=== PATIENT | female | born 1935 | race Caucasian/White ===

== ENCOUNTER → 2019-07-21 12:16 | Outpatient (BNVA) | payer MEDICARE, BC, SELFPAY | PROVIDERS: Family Provider Family Medicine; PCP Family Medicine; Visit Provider Family Medicine | DX: Z00.00 Encounter for general adult medical examination without abnormal findings (principal); M19.90 Unspecified osteoarthritis, unspecified site; Z91.81 History of falling; Z13.31 Encounter for screening for depression | CPT/HCPCS: 80053; 80061; 84443; 85025 ==

== ENCOUNTER → 2021-02-20 10:15 | Outpatient (BNVA) | payer MEDICARE, MEDICAID, SELFPAY | PROVIDERS: PCP Family Medicine; Visit Provider Family Medicine | DX: Z00.00 Encounter for general adult medical examination without abnormal findings (principal); M50.320 Other cervical disc degeneration, mid-cervical region, unspecified level; L57.0 Actinic keratosis; M19.90 Unspecified osteoarthritis, unspecified site; Z79.899 Other long term (current) drug therapy; Z12.31 Encounter for screening mammogram for malignant neoplasm of breast; Z87.81 Personal history of (healed) traumatic fracture | CPT/HCPCS: 80053; 80061; 84443 ==

== ENCOUNTER → 2021-03-02 11:35 | Outpatient (BNVA) | payer MEDICARE, MEDICAID, SELFPAY | PROVIDERS: PCP Family Medicine; Visit Provider Family Medicine | DX: R79.89 Other specified abnormal findings of blood chemistry (principal); R53.83 Other fatigue | CPT/HCPCS: 82607; 84439; 84443; 84481 ==

== ENCOUNTER 2021-04-05 13:17 | Outpatient (CLI) | payer MEDICARE, MEDICAID, SELFPAY ==
--- NOTE | 2021-04-05 13:55 | XR_ITS ---
WS: [id number] DEXA (DUAL ENERGY X-RAY ABSORPTIOMETRY) Bone mineral density was performed using a Edaixi machine. HISTORY: Compression fracture of spine COMPARISON: None available. Total hip BMD: Left: 0.704 g/cm2. T score: -2.4 Z score: 0.0 Right: 0.641 g/cm2. T score: -2.9 Z score: -0.5 10 year probability of a major osteoporotic fracture is 35%. XR/XR DEXA axial skeleton* [id number] IMPRESSION: OSTEOPOROSIS based upon the WHO classification for females.
--- NOTE | 2021-04-05 14:00 | MM_ITS ---
WS: [id number] Exam: [id number] Date/Time of Exam: 04/05/2021 2:10 PM Reason For Exam: Screening VIEWS: MLO and CC views both breasts. Comparison made with prior exam of 05/04/2019, 09/21/2015.. Findings: There was no sign of mass, architectural distortion or suspicious calcification in either breast. Sc attered fibroglandular densities MM/[id number] Impression: BI-RADS: 2-Benign FOLLOW-UP: 1 Year Follow-up This mammogram was also analyzed by the Computer Aided Detection System R2 Imag e Shake Loader.
== END 2021-04-05 13:18 | disposition home or self-care (01) ==
LOC: RADSHAW 13:21
PROVIDERS: PCP Family Medicine; Visit Provider Family Medicine
DX: Z12.31 Encounter for screening mammogram for malignant neoplasm of breast (principal); Z87.81 Personal history of (healed) traumatic fracture; M81.0 Age-related osteoporosis without current pathological fracture
CPT/HCPCS: 77067; 77080

== ENCOUNTER → 2021-06-12 12:23 | Outpatient (BNVA) | payer MEDICARE, MEDICAID, SELFPAY | PROVIDERS: PCP Family Medicine; Visit Provider Family Medicine | DX: M79.641 Pain in right hand (principal) | CPT/HCPCS: 84550; 85025 ==

== ENCOUNTER → 2022-05-30 11:51 | Outpatient (BNVA) | payer MEDICARE, MEDICAID, SELFPAY | PROVIDERS: PCP Family Medicine; Visit Provider Nurse Practitioner Family | DX: R68.89 Other general symptoms and signs (principal) | CPT/HCPCS: 87400 ==

== ENCOUNTER → 2022-07-22 10:49 | Outpatient (BNVA) | payer MEDICARE, MEDICAID, SELFPAY | PROVIDERS: PCP Family Medicine; Visit Provider Family Medicine | DX: M81.0 Age-related osteoporosis without current pathological fracture (principal); Z13.6 Encounter for screening for cardiovascular disorders; G57.93 Unspecified mononeuropathy of bilateral lower limbs | CPT/HCPCS: 80053; 80061; 84443; 85025 ==

== ENCOUNTER 2022-08-07 23:02 | Emergency (ER) | payer MEDICARE, MEDICAID, SELFPAY ==
[2022-08-07 23:03] VITALS: BMI 22.8
[2022-08-07 23:05] VITALS: BP 185/105; PULSE 86; RESP 15; TEMP 36.6; O2SAT 92
--- NOTE | 2022-08-07 23:09 | CTR_ITS ---
PROCEDURE INFORMATION: Exam: CT Cervical Spine Without Contrast Exam date and time: 08/08/2022 12:06 AM Age: 86 years old Clinical indication: Injury or trauma; Fall; Blunt trauma; Patient HX: Fell at home onto concrete floor. Hematoma to RT temporal with contusion to RT orbit. C/O head, neck, and severe RT pelvic pain. TECHNIQUE: Imaging protocol: Computed tomography of the cervical spine without contrast. Radiation optimization: All CT scans at this facility use at least one of these dose optimization techniques: automated exposure control; mA and/or kV adjustment per patient size (includes targeted exams where dose is matched to clinical indication); or iterative reconstruction. REPORTING DATA: Count of CT and Cardiac NM exams in prior 12 months: This patient has received 2 known CTs and 0 known cardiac nuclear medicine studies in the 12 months prior to the current study. COMPARISON: CT head wo con* [id number] 08/08/2022 12:01 AM RADIATION DOSE METRICS: Total DLP (mGy-cm): 271.37 FINDINGS: Bones/joints: Diffuse bony demineralization. Near anatomic alignment. No acute fracture. Multilevel degenerative changes are present. No severe spinal canal stenosis. Partially imaged right maxillary and zygomatic fractures as described on comparison CT head. Lungs: Lung apices are normal. Soft tissues: Unremarkable. CT/CT cervical spin wo con* [id number] IMPRESSION: No acute cervical spinal fracture.
--- NOTE | 2022-08-07 23:09 | CTR_ITS ---
PROCEDURE INFORMATION: Exam: CT Head Without Contrast Exam date and time: 08/08/2022 12:01 AM Age: 86 years old Clinical indication: Injury or trauma; Fall; Blunt trauma (contusions or hematomas); Patient HX: Fell at home onto concrete floor. Hematoma to RT temporal with contusion to RT orbit. C/O head, neck, and severe RT pelvic pain. TECHNIQUE: Imaging protocol: Computed tomography of the head without contrast. Radiation optimization: All CT scans at this facility use at least one of these dose optimization techniques: automated exposure control; mA and/or kV adjustment per patient size (includes targeted exams where dose is matched to clinical indication); or iterative reconstruction. REPORTING DATA: Count of CT and Cardiac NM exams in prior 12 months: This patient has received 2 known CTs and 0 known cardiac nuclear medicine studies in the 12 months prior to the current study. COMPARISON: No relevant prior studies available. RADIATION DOSE METRICS: Total DLP (mGy-cm): 1302.58 FINDINGS: Brain: Right-sided temporoparietal subarachnoid hemorrhage is seen on series 4, image 28. No other hemorrhage. No midline shift or mass effect. No acute infarct. Cerebral ventricles: No ventriculomegaly. Paranasal sinuses: High density material seen in the right maxillary sinus which is likely blood. There is a fracture of the right anterior and posterior maxillary sinus ron. Right pre maxillary soft tissue swelling is present. Mastoid air cells: Visualized mastoid air cells are well aerated. Bones/joints: Comminuted fracture of the greater wing of the sphenoid bone. Nondisplaced fracture of the posterior right zygomatic arch. Soft tissues: Right frontal moderate-sized scalp hematoma. CT/CT head wo con* [id number] IMPRESSION: 1. Right-sided temporoparietal subarachnoid hemorrhage. 2. Right-sided zygomaxillary complex fracture as described. Recommend dedicated facial bone CT for further assessment. 3. Right frontal scalp hematoma. THIS REPORT CONTAINS FINDINGS THAT MAY BE CRITICAL TO PATIENT CARE. The findings were verbally communicated via telephone conference with STONEY Landry at 12:38 AM EVP OF PRODUCTS & CO FOUNDER on 08/08/2022. The findings were acknowledged and understood.
--- NOTE | 2022-08-07 23:09 | ECG_ITS ---
[facility] Test Date: 2022-08-07 Pat Name: Berenice Gilbert Department: Room: Gender: Female Fitter'S Assistant: : 1935 Requested By: Shadi Matthews Order Number: [id number] Camron MD: Ankush Morrow M.D. Measurements Intervals [place] Rate: 77 P: 68 GA: 131 QRS: 24 QRSD: 114 T: 53 QT: 399 QTc: 454 Interpretive Statements SINUS RHYTHM INCOMPLETE RIGHT BUNDLE BRANCH BLOCK [90+ ms QRS DURATION, TERMINAL R IN V1/V2, 40+ ms S IN I/aVL/V4/V5/V6] PROBABLE LATERAL MYOCARDIAL INFARCTION , OF INDETERMINATE AGE [35 ms Q WAVE IN I/aVL/V5/V6] POSSIBLE INFERIOR MYOCARDIAL INFARCTION , PROBABLY OLD [30 ms Q WAVE IN II/aVF] No previous ECG available for comparison Electronically Signed On 08-08-2022 22:19:01 FIRE ALARM OPERATOR by Ankush Morrow M.D. [id number]
--- NOTE | 2022-08-07 23:09 | XRR_ITS ---
PROCEDURE INFORMATION: Exam: XR Right Hip Exam date and time: 08/07/2022 11:18 PM Age: 86 years old Clinical indication: Injury or trauma; Fall; Blunt trauma (contusions or hematomas); Right; Pelvic region; Patient HX: Fell at home onto concrete floor. Hematoma to RT temporal with contusion to RT orbit. C/O head, neck, and severe RT pelvic pain. TECHNIQUE: Imaging protocol: Radiologic exam of the right hip. Views: 1 view hip with pelvis when performed. COMPARISON: MR lumbar spine wo con* [id number] 12/24/2017 12:59 PM FINDINGS: Bones/joints: Better seen on same-day CT pelvis are fractures involving the right superior and inferior pubic rami with extension to the pubic symphysis. Soft tissues: Unremarkable. XR/XR hip RT 2-3V wo/w pel* [id number] IMPRESSION: Better seen on same-day CT pelvis are fractures involving the right superior and inferior pubic rami with extension to the pubic symphysis.
--- NOTE | 2022-08-07 23:09 | XRR_ITS ---
PROCEDURE INFORMATION: Exam: XR Chest Exam date and time: 08/07/2022 11:16 PM Age: 86 years old Clinical indication: Injury or trauma; Fall; Blunt trauma (contusions or hematomas); Patient HX: Fell at home onto concrete floor. Hematoma to RT temporal with contusion to RT orbit. C/O head, neck, and severe RT pelvic pain. TECHNIQUE: Imaging protocol: Radiologic exam of the chest. Views: 1 view. COMPARISON: No relevant prior studies available. FINDINGS: Lungs: Unremarkable. No consolidation. Pleural spaces: Unremarkable. No pleural effusion. No pneumothorax. Heart/Mediastinum: Large hiatal hernia. Bones/joints: Unremarkable. XR/XR chest 1V portable [id number] IMPRESSION: 1. Negative for traumatic injury to the chest. 2. Large hiatal hernia.
--- NOTE | 2022-08-07 23:09 | XRR_ITS ---
PROCEDURE INFORMATION: Exam: XR Pelvis Exam date and time: 08/07/2022 11:18 PM Age: 86 years old Clinical indication: Injury or trauma; Fall; Blunt trauma (contusions or hematomas); Right; Pelvic region; Prior surgery; Surgery type: Hysterectomy; Patient HX: Fell at home onto concrete floor. Hematoma to RT temporal with contusion to RT orbit. C/O head, neck, and severe RT pelvic pain. TECHNIQUE: Imaging protocol: Radiologic exam of the pelvis. Views: 1 or 2 view. COMPARISON: MR lumbar spine wo con* [id number] 12/24/2017 12:59 PM FINDINGS: Bones/joints: Better seen on same-day CT pelvis are fractures involving the right superior and inferior pubic rami with extension to the pubic symphysis. Soft tissues: Unremarkable. XR/XR pelvis 1-2V* [id number] IMPRESSION: Better seen on same-day CT pelvis are fractures involving the right superior and inferior pubic rami with extension to the pubic symphysis.
--- NOTE | 2022-08-07 23:20 | W.ED.TRAUMA ---
HPI - Trauma General: Chief Complaint: Trauma Stated Complaint: FALL Time Seen by Provider: 08/07/22 23:04 Source: patient and EMS Mode of arrival: EMS Limitations: no limitations History of Present Illness: 86-year-old female states that she was in her garage after mu-ism and fell she is unsure if she passed out or tripped and fell she does not really remember she did hit her head she has a hematoma and laceration to the right side of her head she also has some right hip pain. She able to move her lower extremities. She does have a headache she rates 5 out of 10 denies any chest or abdominal pain. Vitals are normal Associated symptoms: Reports headache(s); Denies abdominal pain, chest pain, chills, dental pain, fever(s), nausea or vomiting Review of Systems Const: Denies: fever(s), chills, body aches or change in appetite Eyes: Denies: blurry vision or eye discomfort ENMT: Denies: throat pain or dental pain Card: Denies: chest pain Resp: Denies: dyspnea GI: Denies: abdominal pain, nausea, vomiting or diarrhea : Denies: dysuria Musc: Reports: extremity pain Skin/Breast: Denies: rash Neuro: Reports: headache(s) Psych: Denies: depression Morgan/Lymph: Denies: easy bruising All/Imm: Denies: urticaria PFSH ED PFSH: Medical History (Updated 08/08/22 @ 00:43 by Stoney Matthews MD) Cataracts, bilateral DDD (degenerative disc disease) Kyphosis Macular degeneration Murmur Osteoarthritis Surgical History History of hysterectomy Social History Smoking and tobacco status: never smoked Alcohol intake: never Marital status: Physical Exam Const: COMMON NORMALS: patient oriented x3 HENMT: COMMON NORMALS: normocephalic; head/scalp not atraumatic (1.5 cm laceration and hematoma to right forehead) HEAD & SCALP: normocephalic; not atraumatic (1.5 cm laceration and hematoma to right forehead) Eye: COMMON NORMALS: Equal, round and reactive pupils present and EOMs intact bilaterally PUPIL: Yes Equal, round and reactive pupils present Neck/C-Spine: COMMON NORMALS: full ROM and supple Chest: COMMONS NORMALS: normal inspection of the chest and normal palpation of entire chest wall Resp: COMMON NORMALS: normal respiratory effort, No retractions, No use of accessory muscles and clear to auscultation bilaterally AUSCULTATION: clear to auscultation bilaterally Cardio: COMMON NORMALS: regular rate, regular rhythm and No murmurs present (Cardio) RATE: regular rate RHYTHM: regular rhythm GI: COMMON NORMALS: Normal to inspection, nondistended, normoactive bowel sounds present, Soft to palpation, non-tender and no masses PALPATION: Yes Soft to palpation Extremity: COMMON NORMALS: normal to inspection and full ROM Neuro: COMMON NORMALS: patient oriented x3, moves all extremities and no focal motor deficits Psych: COMMON NORMALS: mental status grossly normal, Normal thought process present and cooperative THOUGHT PROCESS: Normal thought process present Skin: COMMON NORMALS: no rashes or lesions noted and no wounds GENERAL SKIN EXAM: no rashes or lesions noted Procedures Laceration Laceration 1: Site: face Side (If applicable): right Size (cm): 1 Description: linear Pre-repair: wound explored and irrigated extensively Skin layer closed with: other (dermabond) Course Vital Signs: Vital signs: Vital Signs Temperature 97.8 F 08/07/22 23:05 Pulse Rate 86 08/07/22 23:05 Respiratory Rate 15 08/07/22 23:05 Blood Pressure 185/105 08/07/22 23:05 Pulse Oximetry 92 08/07/22 23:05 Oxygen Delivery Me thod 08/07/22 23:05 MDM - Trauma Medical Decision Making Patient presents after a fall with a head injury she does have a subarachnoid hemorrhage along with a rami fracture to her pubis. She is awake and alert GCS of 15 she has been stable here did speak to [facility] and will transfer there for higher level of care with neurosurgery Lab Data 08/07/22 23:27 08/07/22 23:27 Radiology Impressions Cervical Spine CT 08/07/22 23:09 IMPRESSION: No acute cervical spinal fracture. Head CT 08/07/22 23:09 IMPRESSION: 1. Right-sided temporoparietal subarachnoid hemorrhage. 2. Right-sided zygomaxillary complex fracture as described. Recommend dedicated facial bone CT for further assessment. 3. Right frontal scalp hematoma. THIS REPORT CONTAINS FINDINGS THAT MAY BE CRITICAL TO PATIENT CARE. The findings were verbally communicated via telephone conference with STONEY Landry at 12:38 AM BIOINFORMATICS DEVELOPER on 08/08/2022. The findings were acknowledged and understood. Laboratory Results WBC 5.7 10^3/uL (4.0-10.0) 08/07/22 RBC 4.62 10^6/uL (4.1-5.3) 08/07/22 Hgb 14.3 g/dL (11.5-15.3) 08/07/22 Hct 45.1 % (37.0-47.0) 08/07/22 MCV 97.6 fl (81-99) 08/07/22 MCH 31.0 pg (28.0-34.0) 08/07/22 MCHC 31.7 g/dL (30.0-36.0) 08/07/22 RDW 12.3 % (12.1-15.1) 08/07/22 Plt Count 183 10^3/cmm (130-400) 08/07/22 MPV 9.8 fL (7.4-10.4) 08/07/22 Neut % (Auto) 62.5 % 08/07/22 Lymph % (Auto) 26.3 % 08/07/22 Pine % (Auto) 7.5 % 08/07/22 Eos % (Auto) 2.5 % 08/07/22 Baso % (Auto) 0.5 % 08/07/22 Neut # (Auto) 3.56 10^3/uL (1.8-7.7) 08/07/22 Lymph # (Auto) 1.5 10^3/uL (0.8-4.8) 08/07/22 Pine # (Auto) 0.4 10^3/uL (0.2-0.9) 08/07/22 Eos # (Auto) 0.1 10^3/uL (0.0-0.8) 02/22/23 23:27 Baso # (Auto) 0.0 10^3/uL (0.0-0.1) 08/07/22 23:27 Nucleated RBC % (auto) 0 % 08/07/22 23:27 Nucleated RBCs # 0.0 /100WBC 08/07/22 23:27 Sodium 136 mmol/L (136-145) 08/07/22 23:27 Potassium 4.0 mmol/L (3.5-5.1) 08/07/22 23:27 Chloride 95 mmol/L (98-107) L 08/07/22 23:27 Carbon Dioxide 29 mmol/L (22-29) 08/07/22 23:27 Anion Gap 16.0 (5-19) 08/07/22 23:27 BUN 12 mg/dL (8-23) 08/07/22 23:27 Creatinine 0.7 mg/dL (0.5-0.9) 08/07/22 23:27 GFR Calculation Not Reportable 08/07/22 23:27 Glucose 117 mg/dL (65-115) H 08/07/22 23:27 Calculated Osmolality 283 mOsm/kg (285-295) L 08/07/22 23:27 Calcium 9.3 mg/dL (8.5-10.5) 08/07/22 23:27 EKG Data EKG 1: I personally reviewed and interpreted this EKG as follows: EKG interpretation date: 08/07/22 EKG interpretation time: 23:39 Interpretation: nsr hr [address] or t wave abnormalities qrs 114 qtc 431 Discharge Plan Discharge Patient Disposition: Xfer Short-Term Hosp Clinical Impression: Subarachnoid hemorrhage, Fall, Closed fracture of pubic ramus Condition: Stable Referrals: Tessa Shafer MD [Primary Care Provider] - Coding Level of Care Code ED Finish Grinder for Chg Fwmayo
[2022-08-07 23:32] LABS: Basophils % 0.5 %; Eosinophils # 0.1 10^3/uL (0.0-0.8); Eosinophils % 2.5 %; Hematocrit 45.1 % (37.0-47.0); Hemoglobin 14.3 g/dL (11.5-15.3); Lymphocytes # 1.5 10^3/uL (0.8-4.8); Lymphocytes % 26.3 %; Mean Corpuscular HGB Conc 31.7 g/dL (30.0-36.0); Mean Corpuscular Volume 97.6 fl (81-99); Mean Platelet Volume 9.8 fL (7.4-10.4); Monocytes # 0.4 10^3/uL (0.2-0.9); Monocytes % 7.5 %; Neutrophils # 3.56 10^3/uL (1.8-7.7); Neutrophils % 62.5 %; Nucleated Red Blood Cells % 0 %; Platelet Count 183 10^3/cmm (130-400); Red Blood Count 4.62 10^6/uL (4.1-5.3); Red Cell Distribution Width 12.3 % (12.1-15.1); White Blood Count 5.7 10^3/uL (4.0-10.0)
[2022-08-07 23:49] LABS: Blood Urea Nitrogen 12 mg/dL (8-23); Calcium 9.3 mg/dL (8.5-10.5); Carbon Dioxide 29 mmol/L (22-29); Chloride 95 mmol/L (98-107); Creatinine Clr Calc Pharmacy 43.5834; Glucose 117 mg/dL (65-115); Osmolality Calculated 283 mOsm/kg (285-295); Sodium 136 mmol/L (136-145)
--- NOTE | 2022-08-08 00:02 | CTR_ITS ---
PROCEDURE INFORMATION: Exam: CT Pelvis Without Contrast; Skeletal Exam date and time: 08/08/2022 12:09 AM Age: 86 years old Clinical indication: Injury or trauma; Fall; Blunt trauma (contusions or hematomas); Right; Pelvic region; Prior surgery; Surgery type: Hysterectomy; Patient HX: Fell at home onto concrete floor. Hematoma to RT temporal with contusion to RT orbit. C/O head, neck, and severe RT pelvic pain. TECHNIQUE: Imaging protocol: Computed tomography of the pelvis without contrast. Exam focused on the skeleton. Radiation optimization: All CT scans at this facility use at least one of these dose optimization techniques: automated exposure control; mA and/or kV adjustment per patient size (includes targeted exams where dose is matched to clinical indication); or iterative reconstruction. REPORTING DATA: Count of CT and Cardiac NM exams in prior 12 months: This patient has received 2 known CTs and 0 known cardiac nuclear medicine studies in the 12 months prior to the current study. COMPARISON: CR (PELVIS, ) 08/07/2022 11:18 PM RADIATION DOSE METRICS: Total DLP (mGy-cm): 320.1 FINDINGS: Stomach and bowel: Constipation. Diverticulosis without diverticulitis. Bones/joints: Right superior and inferior pubic rami fractures with involvement of the pubic symphysis. L4 vertebroplasty changes. Soft tissues: Unremarkable. CT/CT pelvis con [id number] IMPRESSION: 1. Right superior and inferior pubic rami fractures with involvement of the pubic symphysis. 2. L4 vertebroplasty changes. 3. Constipation. 4. Diverticulosis without diverticulitis.
[2022-08-08] MEDS: ondansetron 2 mg/ML SDV 2 mL 4 MG IVP (00:29)
[2022-08-08] MEDS: morphine 4 mg/mL SDV 1 mL IVP (00:29)
[2022-08-08] MEDS: acetaminophen 325 mg Tablet 650 MG PO (00:29)
[2022-08-08 01:05] VITALS: BP 144/71; PULSE 77; RESP 19; O2SAT 93
[2022-08-08 01:12] LABS: INR 0.96 (0.8-1.2)
[2022-08-08 01:17] VITALS: BP 134/70; PULSE 78; RESP 18; O2SAT 93
== END 2022-08-08 01:18 | disposition short-term general hospital (02) ==
PROVIDERS: Emergency Provider Emergency Medicine; PCP Family Medicine
DX: S06.6XAA Traumatic subarachnoid hemorrhage with loss of consciousness status unknown, initial encounter (principal); S32.501A Unspecified fracture of right pubis, initial encounter for closed fracture; S02.40EA Zygomatic fracture, right side, initial encounter for closed fracture; S01.81XA Laceration without foreign body of other part of head, initial encounter; H35.30 Unspecified macular degeneration; W19.XXXA Unspecified fall, initial encounter
CPT/HCPCS: 12011; 70450; 71045; 72125; 72170; 72192; 73502; 80048; 85025; 85610; 93005; 96374; 96375; 99285; J2270; J2405

== ENCOUNTER 2022-11-27 19:45 | Inpatient (IN) | payer MEDICARE, MEDICAID, SELFPAY ==
[2022-11-27 20:01] VITALS: BP 145/87; PULSE 72; RESP 18; TEMP 36.9; O2SAT 89; BMI 22.8
--- NOTE | 2022-11-27 20:06 | XRR_ITS ---
PROCEDURE INFORMATION: Exam: XR Left Hip Exam date and time: 11/27/2022 8:10 PM Age: 87 years old Clinical indication: Hip pain; Left hip; Additional info: Fall pain TECHNIQUE: Imaging protocol: Radiologic exam of the left hip. Views: 2 or 3 views hip with pelvis when performed. COMPARISON: CT pelvis wo con [id number] 08/08/2022 12:09 AM FINDINGS: Bones/joints: Left hip subcapital hip fracture with displacement and impaction of the fracture fragments. Right pubic symphysis along with superior and inferior pubic rami chronic fractures. Lumbar spine vertebroplasty changes. Soft tissues: Unremarkable. XR/XR hip LT 2-3V wo/w pel* [id number] IMPRESSION: 1. Left hip subcapital hip fracture with displacement and impaction of the fracture fragments. 2. Right pubic symphysis along with superior and inferior pubic rami chronic fractures. 3. Lumbar spine vertebroplasty changes.
--- NOTE | 2022-11-27 20:07 | ED_ITS ---
HPI - Fall General: Chief Complaint: Fall Stated Complaint: FALL Time Seen by Provider: 11/27/22 20:01 History of Present Illness: Patient presents to the ER by EMS with complaints of fall around 630 and landing on her left hip. Per EMS there was shortening and deformity patient was given 10 mg morphine and 4 mg Zofran on route pain is moderately well controlled at the time. complaint: fall Onset (ago): hour(s) (1.5 hours ago) Fall from: standing Loss of consciousness: None Context: tripped/slipped Location of injury: other (Left hip) Severity: moderate Quality: aching Review of Systems General: Reports: 10 or more systems reviewed and unremarkable except in HPI and below PFSH ED PFSH: Medical History (Updated 11/27/22 @ 20:39 by Marcos Valentine DO) Cataracts, bilateral DDD (degenerative disc disease) Kyphosis Macular degeneration Murmur Osteoarthritis Surgical History History of hysterectomy Social History Smoking and tobacco status: never smoked Alcohol intake: never Substance/Drug Use: never Marital status: Physical Exam Const: COMMON NORMALS: no acute distress, average body habitus, patient oriented x3, no limitations, healthy appearing, alert and well nourished HENMT: COMMON NORMALS: normocephalic, atraumatic, hearing grossly normal bilaterally, external ears normal, Normal external nose present and moist oral mucous membranes HEAD & SCALP: normocephalic and atraumatic NOSE: Normal external nose present EXTERNAL EAR: Yes external ears normal Neck/C-Spine: COMMON NORMALS: full ROM, no lymphadenopathy, supple, no meningeal signs, no JVD and Thyroid normal THYROID: Thyroid normal Chest: COMMONS NORMALS: normal inspection of the chest and normal palpation of entire chest wall Resp: COMMON NORMALS: normal respiratory effort, No retractions, No use of accessory muscles and clear to auscultation bilaterally AUSCULTATION: clear to auscultation bilaterally Cardio: COMMON NORMALS: no JVD, regular rate, regular rhythm, S1 normal heart sound present, S2 normal heart sound present, No gallops present (Cardio), No clicks present (Cardio), No murmurs present (Cardio) and No rub (Cardio) RATE: regular rate RHYTHM: regular rhythm HEART SOUNDS: S1 normal heart sound present and S2 normal heart sound present GI: COMMON NORMALS: Normal to inspection, nondistended, normoactive bowel sounds present, Soft to palpation, non-tender, No hepatosplenomegaly present and no masses PALPATION: Yes Soft to palpation and Yes No hepatosplenomegaly present : COMMON NORMALS: Yes no CVA tenderness BLADDER/KIDNEY EXAM: Yes no CVA tenderness Back/Pelvis: COMMON NORMALS: no CVA tenderness Extremity: NARRATIVE EXTREMITY EXAM: Pain with palpation over left hip region probable deformity. Neuro: COMMON NORMALS: patient oriented x3 SENSORIUM/ORIENTATION: Yes alert MENINGEAL SIGNS: Yes no meningeal signs Course Vital Signs: Vital signs: Vital Signs Temperature 98.5 F 11/27/22 20:01 Pulse Rate 72 11/27/22 20:01 Respiratory Rate 16 11/27/22 20:37 Blood Pressure 145/87 11/27/22 20:01 Pulse Oximetry 89 L 11/27/22 20:01 Oxygen Delivery Me thod Room Air 11/27/22 20:01 MDM - Fall Medical Decision Making Patient presents to the ER by EMS with complaints of fall and left hip pain. Upon review of the x-ray patient does have a left hip fracture probable left femoral neck fracture Dr. Cunningham was called and consulted and agreed to take care of the hip in the morning, Dr. Beal was contacted and agreed to accept the patient for further evaluation and treatment. Basic labs was obtained including chest x-ray and EKG, these are pending at time of admission. Differential Diagnosis Unlikely syncope, dislocation of shoulder region, fracture of wrist, compression fracture, concussion with loss of consciousness or concussion without loss of consciousness Medical Records I reviewed the patient's medical records. Lab Data I reviewed the patient's lab results. Radiology Impressions Hip/Pelvis X-Ray 11/27/22 20:06 IMPRESSION: 1. Left hip subcapital hip fracture with displacement and impaction of the fracture fragments. 2. Right pubic symphysis along with superior and inferior pubic rami chronic fractures. 3. Lumbar spine vertebroplasty changes. Chest X-Ray 11/27/22 20:29 IMPRESSION: 1. Large hiatal hernia. 2. Mild cardiomegaly. EKG Data EKG 1: I personally reviewed and interpreted this EKG as follows: EKG interpretation date: 11/27/22 EKG interpretation time: 20:58 Prior EKG tracings: not available for review Interpretation: EKG showed normal sinus rhythm ventricular rate of 69 beats minute, VA interval 132, QRS duration 124, QTc of 440, Discharge Plan Discharge Patient Disposition: Admitted As Inpatient Clinical Impression: Closed fracture of left hip Qualifiers: Encounter type: initial encounter Qualified Code(s): S72.002A - Fracture of unspecified part of neck of left femur, initial encounter for closed fracture Fall Qualifiers: Encounter type: initial encounter Qualified Code(s): W19.XXXA - Unspecified fall, initial encounter Condition: Stable Coding Level of Care Code ED Death Surveys Coder for Sherine Rand
--- NOTE | 2022-11-27 20:29 | XRR_ITS ---
PROCEDURE INFORMATION: Exam: XR Chest Exam date and time: 11/27/2022 8:38 PM Age: 87 years old Clinical indication: Injury or trauma; Fall; Additional info: Fall surgical clearance TECHNIQUE: Imaging protocol: Radiologic exam of the chest. Views: 1 view. COMPARISON: CR (CHEST, ) 08/07/2022 11:16 PM FINDINGS: Lungs: Unremarkable. No consolidation. Pleural spaces: Unremarkable. No pleural effusion. No pneumothorax. Heart/Mediastinum: Large hiatal hernia. Mild cardiomegaly. Bones/joints: Unremarkable. XR/XR chest 1V portable [id number] IMPRESSION: 1. Large hiatal hernia. 2. Mild cardiomegaly.
[2022-11-27 20:37] VITALS: RESP 16
[2022-11-27] MEDS: morphine 4 mg/mL SDV 1 mL IVP (20:37)
--- NOTE | 2022-11-27 20:58 | ECG_ITS ---
[facility] Test Date: 2022-11-27 Pat Name: Berenice Gilbert Department: Room: Gender: Female Cosmetics Presser: : 1935 Requested By: Marcos Valentine Order Number: [id number] Camron MD: Camille Rosen M.D. Measurements Intervals [place] Rate: 69 P: 44 IN: 132 QRS: -25 QRSD: 124 T: 33 QT: 421 QTc: 453 Interpretive Statements SINUS RHYTHM PROBABLE LATERAL MYOCARDIAL INFARCTION , PROBABLY OLD [35 ms Q WAVE IN I/aVL/V5/V6] PROBABLE INFERIOR MYOCARDIAL INFARCTION , PROBABLY OLD [35 ms Q WAVE IN II/aVF] Compared to ECG 08/07/2022 23:39:31 Incomplete right bundle-branch block no longer present Myocardial infarct finding still present Electronically Signed On 11-28-2022 13:01:13 CDT by Camille Rosen M.D. [email or web address]/store/[id number]
--- NOTE | 2022-11-27 21:24 | P.HP_ITS ---
Providers/Chief Complaint Admitting Physician: Julia Beal MD Primary Care Provider: Tessa Shafer MD Chief Complaint: FALL History of Present Illness Berenice Gilbert is a 87 year old female with h/o osteoarthritis and DDD presented s/p fall at home. as per the patient she was getting ready to go to the religion and trying to get in the car, but slipped on the rug and fell. she could not describe the exact sequence of events that led to fall. But denies dizziness, SOB, chest pain, headache, fever or bladder/urinary complaints. She was unable to get up post fall and on arrival EMS noticed that the left leg was shorted as compared to right leg.She reports pain at the site and restriction of movements. Review of Systems General: Reports: 10 or more systems reviewed and unremarkable except in HPI and below Medications/Allergies Home Medications Medication Instructions Recorded Confirmed Last Taken Type cranberry 500 mg capsule 500 mg PO DAILY 07/21/19 09/13/22 Unknown History multivitamin (Multiple Vitamins 1 tab PO DAILY 07/21/19 09/13/22 Unknown History tablet) levocetirizine 5 mg tablet See Rx Instructions .Route 02/25/22 09/13/22 Unknown Rx .COMPLEX #90 tabs clotrimazole 1 % topical cream 1 applic topical BID #30 grams 03/22/22 09/13/22 Unknown Rx gabapentin 300 mg capsule See Rx Instructions .Route 10/02/22 Unknown Rx .COMPLEX #90 caps meloxicam 15 mg tablet See Rx Instructions .Route 10/02/22 Unknown Rx .COMPLEX #30 tabs methenamine hippurate 1 gram tablet See Rx Instructions .Route 10/02/22 Unknown Rx .COMPLEX #60 tabs raloxifene 60 mg tablet See Rx Instructions .Route 11/01/22 Unknown Rx .COMPLEX #30 tabs Allergies Allergy/AdvReac Type Severity Reaction Status Date / Time hydrocortisone Allergy Unknown Verified 09/13/22 11:20 [From Cortizone-10] insect venom Allergy ANAPHYLAXIS Verified 09/13/22 11:20 Penicillins Allergy DYSPNEA Verified 09/13/22 11:20 tramadol [From Ultram] Allergy DIZZINESS Verified 09/13/22 11:20 PFSH Acute PFSH: Medical History Cataracts, bilateral DDD (degenerative disc disease) Kyphosis Macular degeneration Murmur Osteoarthritis Surgical History History of hysterectomy Social History Smoking and tobacco status: never smoked Alcohol intake: never Substance/Drug Use: never Marital status: Vitals/I&O/Wt Last Vital Signs Temp 98.5 F 11/27/22 20:01 Pulse 72 11/27/22 20:01 Resp 16 11/27/22 20:37 BP 145/87 11/27/22 20:01 Pulse Ox 89 L 11/27/22 20:01 O2 Del Method Room Air 11/27/22 20:01 Weight last 48 hrs Weight 56.699 kg Physical Exam Narrative: AAOx3, pleasant but in mild distress due to pain. Chest clear to ascultation b/l CVS normal exam Abd NAD Ext no edema noted. left leg seems shorter than right. ROM restricted. No bruising noted. Data 11/27/22 21:05 CXR: Radiologist's impression: 1. ? Large hiatal hernia. 2. ? Mild cardiomegaly. ? Other Xray: Radiologist's impression: X-ray hip and pelvis 1. ? Left hip subcapital hip fracture with displacement and impaction of the fracture fragments. 2. ? Right pubic symphysis along with superior and inferior pubic rami chronic fractures. 3. ? Lumbar spine vertebroplasty changes. ? EKG 1: EKG computer-generated impression: SINUS RHYTHM PROBABLE LATERAL MYOCARDIAL INFARCTION , PROBABLY OLD [35 ms Q WAVE IN I/aVL/V5/V6] PROBABLE INFERIOR MYOCARDIAL INFARCTION , PROBABLY OLD [35 ms Q WAVE IN II/aVF] Compared to ECG 08/07/2022 23:39:31 Incomplete right bundle- branch block no longer present Myocardial infarct finding still present A&P Assessment and plan (1) Closed fracture of left hip: secondary to fall Qualifiers: Encounter type: initial encounter Qualified Code(s): S72.002A - F racture of unspecified part of neck of left femur, initial encounter for closed fracture (2) Fall: mechanical fall Qualifiers: Encounter type: initial encounter Qualified Code(s): W19.XXXA - Unspecified fall, initial encounter Plan Admit to medical floor Po percocet 5/325 mg q6h prn for pain. strict bedrest resume home medications. Ortho informed by ER physician, to see patient in am for further intervention. DVT PPX with SQ heparin. Full code Regular diet. Attestations Medical Necessity Statement*: closed fracture of hip need correctional surgery and rehab post surgery. Time Spent in Patient Care: 30min Coding Level of Care Code 55906 Diagnoses Closed fracture of left hip S72.002A Encounter type: initial encounter Fall W19.XXXA Encounter type: initial encounter Time Spent (min) 30
[2022-11-27 21:28] LABS: Basophils % 0.4 %; Eosinophils # 0.1 10^3/uL (0.0-0.8); Hematocrit 42.8 % (37.0-47.0); Hemoglobin 13.5 g/dL (11.5-15.3); Lymphocytes # 1.2 10^3/uL (0.8-4.8); Lymphocytes % 23.6 %; Mean Corpuscular HGB Conc 31.5 g/dL (30.0-36.0); Mean Corpuscular Hemoglobin 30.9 pg (28.0-34.0); Mean Corpuscular Volume 97.9 fl (81-99); Mean Platelet Volume 9.7 fL (7.4-10.4); Monocytes # 0.4 10^3/uL (0.2-0.9); Monocytes % 7.6 %; Neutrophils # 3.54 10^3/uL (1.8-7.7); Neutrophils % 67.2 %; Nucleated Red Blood Cells % 0 %; Platelet Count 162 10^3/cmm (130-400); Red Blood Count 4.37 10^6/uL (4.1-5.3); White Blood Count 5.3 10^3/uL (4.0-10.0)
[2022-11-27 21:31] VITALS: BP 124/92; RESP 16; O2SAT 92
[2022-11-27 21:31] LABS: Alanine Aminotransferase 14 U/L (0-33); Albumin Level 3.8 g/dL (3.5-5.2); Alkaline Phosphatase 65 U/L (35-105); Blood Urea Nitrogen 14 mg/dL (8-23); Calcium 9.5 mg/dL (8.5-10.5); Carbon Dioxide 27 mmol/L (22-29); Chloride 99 mmol/L (98-107); Creatinine Clr Calc Pharmacy 42.8051; Globulin 2.3 g/dL (1.3-4.6); Glucose 98 mg/dL (65-115); Osmolality Calculated 278 mOsm/kg (285-295); Sodium 134 mmol/L (136-145); Total Bilirubin 0.3 mg/dL (0.15-1.2); Total Protein 6.1 g/dL (6.6-8.7)
[2022-11-27 21:34] LABS: Anion Gap 12.9 (5-19); Aspartate Amino Transferase 25 U/L (0-32); Potassium 4.9 mmol/L (3.5-5.1)
[2022-11-27 21:43] LABS: INR 0.94 (0.8-1.2)
[2022-11-27] MEDS: gabapentin 300 mg Capsule PO (22:36)
[2022-11-27 22:37] VITALS: RESP 18
[2022-11-27] MEDS: ondansetron 4 MG Tablet PO (22:37)
[2022-11-27] MEDS: oxyCODONE-APAP 5-325 mg Tablet 1 TAB PO (22:37)
[2022-11-27] MEDS: enoxaparin 40 mg/0.4 mL Syringe SUBCUT (22:37)
[2022-11-28] VITALS (19 sets, daily range): BP systolic 86–128; BP diastolic 6–74; PULSE 77–87; RESP 14–18; TEMP 36.2–37.1; O2SAT 90–97
[2022-11-28] MEDS: oxyCODONE-APAP 5-325 mg Tablet 1 TAB PO ×3 (02:50→20:45)
--- NOTE | 2022-11-28 09:48 | P.CONIM_ITS ---
Providers/Reason For Consult Consulting Physician/Specialty*: Jose Luis Cunningham MD; orthopedic surgery Reason for Consult*: Left femoral neck fracture Attending Physician: Lucian Lopez MD Primary Care Provider: Tessa Shafer MD History of Present Illness History of Present Illness Berenice Gilbert is a 87 year old female who fell yesterday evening at home. She states she was getting ready go to adventism and trying to get in the car. She slipped on a rug falling to the ground with immediate left hip pain. She was taken to our hospital where radiographs revealed a displaced left femoral neck fracture. She has been admitted to the medical service for optimization prior to anticipated hemiarthroplasty this afternoon. She lives alone. She uses no ambulatory aids. She states she was hospitalized back in July for a nondisplaced pelvic fracture and a small intracranial bleed. She reports that she recovered well from that injury. Medications/Allergies Home Medications Medication Instructions Recorded Confirmed Last Taken Type cranberry 500 mg capsule 500 mg PO DAILY 07/21/19 11/28/22 Unknown History multivitamin (Multiple Vitamins 1 tab PO DAILY 07/21/19 11/28/22 Unknown History tablet) gabapentin 300 mg capsule See Rx Instructions .Route 10/02/22 11/28/22 Unknown Rx .COMPLEX #90 caps methenamine hippurate 1 gram tablet See Rx Instructions .Route 10/02/22 11/28/22 Unknown Rx .COMPLEX #60 tabs levocetirizine 5 mg tablet 5 mg PO DAILY 11/28/22 11/28/22 Unknown History meloxicam 15 mg tablet 15 mg PO DAILY 11/28/22 11/28/22 Unknown History raloxifene 60 mg tablet 60 mg PO DAILY 11/28/22 11/28/22 Unknown History Allergies Allergy/AdvReac Type Severity Reaction Status Date / Time hydrocortisone Allergy Unknown Verified 11/28/22 08:47 [From Cortizone-10] insect venom Allergy ANAPHYLAXIS Verified 11/28/22 08:47 Penicillins Allergy DYSPNEA Verified 11/28/22 08:47 tramadol [From Ultram] Allergy DIZZINESS Verified 11/28/22 08:47 Current Medications Generic Name Dose Route Start Last Admin Trade Name Freq PRN Reason Stop Dose Admin Clotrimazole 1 applic 11/28/22 09:00 11/28/22 09:23 Clotrimazole 1% Cream 30 Gm TOPICAL Not Given BID JAYDA Enoxaparin Sodium 40 mg 11/27/22 21:15 11/27/22 22:37 Enoxaparin 40 Mg/0.4 Ml Syringe SUBCUT 40 mg Q24H JAYDA Administration Gabapentin 300 mg 11/27/22 21:06 11/28/22 09:22 Gabapentin 300 Mg Capsule PO Not Given TID JAYDA Multivitamins Therapeutic 1 tab 11/28/22 09:00 11/28/22 09:22 Multivitamin Therapeutic Tablet PO Not Given DAILY JAYDA Ondansetron HCl 4 mg 11/27/22 21:07 11/27/22 22:37 Ondansetron 4 Mg Tablet PO 4 mg Q8H PRN Administration NAUSEA Oxycodone/Acetaminophen 1 tab 11/27/22 21:07 11/28/22 02:50 Oxycodone-Apap 5-325 Mg Tablet PO 1 tab Q4H PRN Administration SEVERE PAIN Pantoprazole Sodium 40 mg 11/28/22 09:00 11/28/22 09:[address] 40 Mg Tablet PO Not Given DAILY JAYDA PFSH Acute PFSH: Medical History (Updated 11/28/22 @ 09:54 by Jose Luis Cunningham MD) Cataracts, bilateral DDD (degenerative disc disease) Kyphosis Macular degeneration Murmur Osteoarthritis Surgical History History of hysterectomy Social History Smoking and tobacco status: never smoked Alcohol intake: never Substance/Drug Use: never Marital status: Vitals/I&O/Wt Last Vital Signs Temp 98 F 11/28/22 07:34 Pulse 81 11/28/22 07:34 Resp 14 11/28/22 07:34 BP 111/63 11/28/22 07:34 Pulse Ox 94 11/28/22 07:34 O2 Del Method Nasal Cannula 11/28/22 00:04 11/27/22 11/28/22 11/28/22 22:59 06:59 14:59 Output Total 275 / 275 120 / 395 Balance -275 / -275 -120 / -395 Weight last 48 hrs Weight 125 lb Physical Exam Narrative: The patient is a thin elderly female in no apparent distress. She is resting comfortably in bed. She is alert and oriented and answers questions appropriately. Clear shortening and external rotation of the left hip compared to the right. Severe pain with motion of left hip. I cannot feel a dorsalis pedis or tibialis posterior pulse in either foot. She will flex and extend her toes bilaterally. Sensation is intact light touch Urinary Catheter Management: Pantoja Latex: Cath Placed During This Visit: yes Reason for Continuing Indwelling Catheter: Required Immobilization for Trauma or Surgery or Anesthesia Urinary Catheter Date of Insertion: 11/27/22 Urinary Catheter Time of Insertion: 22:40 Data 11/27/22 21:20 11/27/22 21:05 Xray Ortho: My impression: 2 views of the left hip and AP of the pelvis are reviewed revealing a displaced left femoral neck fracture. She has lucencies across her right superior and inferior pubic rami consistent with benign united rami fracture A&P Assessment and plan (1) Displaced fracture of right femoral neck: I discussed options with the patient and family. I told them possible treatments for displaced femoral neck fracture would include nonoperative treatment, open reduction internal fixation, or hemiarthroplasty. I told them without treatment the patient would experience ongoing of pain that would limit mobility. This would require pain medications and place her at medical risks due to prolonged periods of bed rest. I discussed the possibility of open reduction internal fixation with pins. I warned them that for displaced fractures of the risk of nonunion and malunion is exceptionally high. In addition there is a high likelihood that the blood applied to the femoral head has been disrupted and that even with successful stabilization of the fracture the femoral head will go on to . I finally discussed the possibility of hemiarthroplasty. I think this would give the patient the greatest chance of being immediately mobilized. I discussed risk of a bleeding and a possible need for blood products. I discussed risk of deep venous thromboses and pulmonary emboli and the need for anticoagulation. I discussed the use of the TXA that may be utilized to diminish blood loss. I discussed risk of component failure and loosening that could require revision. I discussed the risk of dislocation and a bipolar arthroplasty which is quite unlikely. After a long discussion of options they agree to hemiarthroplasty of the hip. I told him he would need to consider placement options after discharge. 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 She it does not sound like she was a symptomatic and these can be observed. Coding Level of Care Code [facility] Diagnoses Displaced fracture of right femoral neck S72.001A Fracture of pelvis with nonunion S32.9XXK
--- NOTE | 2022-11-28 10:16 | PC.CHAP ---
Pastoral Care Encounter/Spiritual Assessment Type of Contact [] Declined chief school finance officer visit [] Patient/Family/Request visit [] Outpatient visit [] Follow-up visit [] Physician referral [] Code/Alert [x] Routine visit [] Staff referral [] Actively dying [] Patient sleeping [] Family support [] [] Out of room [] Palliative care [] [x] Receiving care in room [] Pre-surgical visit [] Trauma [] Long length of stay [] ICU visit [x] Other: Isolation Relational/Emotional Strength [] Patient feels connected with others/family/visitors/staff [] Distress [] Loneliness/isolation [] Abandonment Spirituality of Patient [] Person of Sara [] Attends Episcopal of their Sara [] Believes in Prayer [] Reads Bible or Holiness materials [] There are Spiritual issues to be addressed Resistor Winder Interventions [] Prayer [] Active listening [] Non-anxious presence [] Spiritual/emotional support [] Crisis/trauma care [] Spiritual counseling [] Bereavement support [] Provided bereavement packet [] Provided Bible/devotional materials [] Provided toy/stuffed animal, coloring book to patient or family member [] Provided Communion [] Anointing/[place] [] Salvation [] Completed spiritual assessment [] Other: Impact on Illness or Injury [] Angry [] Fearful [] Anxious [] Often cries [] Exhaustion [] Unable to work [] Unable to attend mormonism [] Unable to walk/stand [] Unable to read [] Unable to drive [] Unable to eat/drink [] Unable to sleep [] Unable to be with family [] Patient intubated [] Other: Summary Isolation Time spent with patient 5 mins
[2022-11-28] MEDS: sodium chloride 0.9% 1,000 ML 30 ML IV (12:21)
--- NOTE | 2022-11-28 12:39 | P.ANESASSM_ITS ---
Pre-Anesthetic Assessment Height/Weight: Height 1.57 m Weight 56.699 kg Temp Pulse Resp BP Pulse Ox O2 Del Method O2 Flow Rate 97.4 F L 85 18 124/68 90 Nasal Cannula 3 11/28/22 11:50 11/28/22 11:50 11/28/22 11:50 11/28/22 11:50 11/28/22 11:50 11/28/22 11:50 11/28/22 11:50 Operation Date: 11/28/22 12:30 Proposed Procedures p Hemiarthroplasty Hip Bipolar(Left) - Jose Luis Cunningham MD Familial anesthetic complications: none Was Beta Cassius taken within 24 hours: N/A Was Clonidine taken within 24 hours: N/A Last intake: Intake Last Liquid Date 11/27/22 Last Liquid Time 21:00 Last Solid Date 11/27/22 Last Solid Time 16:25 Social No alcohol and No tobacco Exam alert, oriented x 3, clear to auscultation bilaterally and regular rate & rhythm Airway Submandibular: within normal limits Cervical ROM: within normal limits Mallampati: Class I Dentition: full Musc/skel Lower Back Pain and Osteoarthritis/DJD Neuropsych Neuropathy Anesthetic Plan ASA status: 2 Anesthesia: Regional (specify below) (SAB) Medications/Allergies Home Medications Medication Instructions Recorded Confirmed Last Taken Type cranberry 500 mg capsule 500 mg PO DAILY 07/21/19 11/28/22 Unknown History multivitamin (Multiple Vitamins 1 tab PO DAILY 07/21/19 11/28/22 Unknown History tablet) gabapentin 300 mg capsule See Rx Instructions .Route 10/02/22 11/28/22 Unknown Rx .COMPLEX #90 caps methenamine hippurate 1 gram tablet See Rx Instructions .Route 10/02/22 11/28/22 Unknown Rx .COMPLEX #60 tabs levocetirizine 5 mg tablet 5 mg PO DAILY 11/28/22 11/28/22 Unknown History meloxicam 15 mg tablet 15 mg PO DAILY 11/28/22 11/28/22 Unknown History raloxifene 60 mg tablet 60 mg PO DAILY 11/28/22 11/28/22 Unknown History Allergies Allergy/AdvReac Type Severity Reaction Status Date / Time hydrocortisone Allergy Unknown Verified 11/28/22 08:47 [From Cortizone-10] insect venom Allergy ANAPHYLAXIS Verified 11/28/22 08:47 Penicillins Allergy DYSPNEA Verified 11/28/22 08:47 tramadol [From [facility]] Allergy DIZZINESS Verified 11/28/22 08:47 Current Medications Generic Name Dose Route Start Last Admin Trade Name Freq PRN Reason Stop Dose Admin Clotrimazole 1 applic 11/28/22 09:00 11/28/22 09:23 Clotrimazole 1% Cream 30 Gm TOPICAL Not Given BID JAYDA Enoxaparin Sodium 40 mg 11/27/22 21:15 11/27/22 22:37 Enoxaparin 40 Mg/0.4 Ml Syringe SUBCUT 40 mg Q24H JAYDA Administration Gabapentin 300 mg 11/27/22 21:06 11/28/22 09:22 Gabapentin 300 Mg Capsule PO Not Given TID JAYDA Sodium Chloride 1,000 mls @ 30 mls/hr 11/28/22 12:15 11/28/22 12:21 Sodium Chloride 0.9% IV 11/29/22 12:14 30 mls/hr .Q24H JAYDA Administration Multivitamins Therapeutic 1 tab 11/28/22 09:00 11/28/22 09:22 Multivitamin Therapeutic Tablet PO Not Given DAILY JAYDA Ondansetron HCl 4 mg 11/27/22 21:07 11/27/22 22:37 Ondansetron 4 Mg Tablet PO 4 mg Q8H PRN Administration NAUSEA Oxycodone/Acetaminophen 1 tab 11/27/22 21:07 11/28/22 10:08 Oxycodone-Apap 5-325 Mg Tablet PO 1 tab Q4H PRN Administration SEVERE PAIN Pantoprazole Sodium 40 mg 11/28/22 09:00 11/28/22 09:[address] 40 Mg Tablet PO Not Given DAILY JAYDA PFSH Anesthesia Medical History (Updated 11/28/22 @ 09:54 by Jose Luis Cunningham MD) Cataracts, bilateral DDD (degenerative disc disease) Kyphosis Macular degeneration Murmur Osteoarthritis Surgical History History of hysterectomy Social History Smoking and tobacco status: never smoked Alcohol intake: never Substance/Drug Use: never Marital status: Data Anesthesia 11/27/22 21:20 11/27/22 21:05 Short CBC 11/27/22 Range/Units 21:20 WBC 5.3 (4.0-10.0) 10^3/uL Hgb 13.5 (11.5-15.3) g/dL Hct 42.8 (37.0-47.0) % MCV 97.9 (81-99) fl Plt Count 162 (130-400) 10^3/cmm Neut % (Auto) 67.2 % Neut # (Auto) 3.54 (1.8-7.7) 10^3/uL BMP 11/27/22 21:05 Sodium 134 L Potassium 4.9 Chloride 99 Carbon Dioxide 27 BUN 14 Creatinine 0.5 Glucose 98 Calcium 9.5 Liver Function 11/27/22 Range/Units 21:05 Total Bilirubin 0.3 (0.15-1.2) mg/dL AST 25 (0-32) U/L ALT 14 (0-33) U/L Alkaline Phosphatase 65 (35-105) U/L Albumin 3.8 (3.5-5.2) g/dL Blood Bank 11/28/22 10:25 Blood Type B Negative Rho(D) Type Negative Antibody Screen Negative Coags 11/27/22 21:20 PT 12.80 INR 0.94 Cardiac Studies: No Data to Display
[2022-11-28] MEDS: clindamycin 600 MG/50 ML PREMIX 100 MG IV ×2 (13:14→21:43)
[2022-11-28] MEDS: tranexamic acid 1,000 mg/10mL SDV 1000 MG IV (13:30)
--- NOTE | 2022-11-28 14:04 | PM.PN ---
Subjective Subjective: Admitted overnight. Seen with family at bedside. States he is fairly comfortable without any difficulty in breathing, chest pain nausea or vomiting but does complain of pain in the hip or minimal movement. States she lives by herself but has family around who can help her. Looking forward to her ORIF in the afternoon today. Vitals/I&O/Wt Last Vital Signs Temp 97.4 F L 11/28/22 11:50 Pulse 85 11/28/22 11:50 Resp 18 11/28/22 11:50 BP 124/68 11/28/22 11:50 Pulse Ox 90 11/28/22 11:50 O2 Del Method Nasal Cannula 11/28/22 11:50 O2 Flow Rate 3 11/28/22 11:50 11/27/22 11/28/22 11/28/22 22:59 06:59 14:59 Output Total 275 / 275 120 / 395 Balance -275 / -275 -120 / -395 Weight last 48 hrs Weight 56.699 kg Physical Exam Narrative: AAOx3, pleasant but in mild distress due to pain. Chest clear to ascultation b/l CVS normal exam Abd NAD Ext no edema noted. left leg seems shorter than right. ROM restricted. No bruising noted. Urinary Catheter Management: Pantoja Latex: Cath Placed During This Visit: yes Reason for Continuing Indwelling Catheter: Required Immobilization for Trauma or Surgery or Anesthesia Urinary Catheter Date of Insertion: 11/27/22 Urinary Catheter Time of Insertion: 22:40 Data 11/27/22 21:20 11/27/22 21:05 A&P Assessment and plan (1) Closed fracture of left hip: secondary to fall. Orthopedics consulted from the ER. Plan for ORIF. Monitor hemoglobin. PT, perioperative antibiotics, anticoagulation as per orthopedic team. For now continue with Percocet every 6 hours as needed. We will try to avoid over narcotics to prevent respiratory failure. Qualifiers: Encounter type: initial encounter Qualified Code(s): S72.002A - Fracture of unspecified part of neck of left femur, initial encounter for closed fracture (2) Fall: mechanical fall Qualifiers: Encounter type: initial encounter Qualified Code(s): W19.XXXA - Unspecified fall, initial encounter Plan Check iron panel, vitamin B12, folate level. Continue with home dose of gabapentin. Full code. N.p.o. for now, regular diet postoperatively. SCDs for DVT prophylaxis. Protonix for PUD prophylaxis. Discharge plan: Plan to discharge home with home health versus SNF depending on PT evaluation postoperatively. Attestations Medical Necessity Statement*: Requires further hospitalization for ORIF given close fracture of left hip by safe discharge planning is sought. Diagnoses Closed fracture of left hip S72.002A Encounter type: initial encounter Fall W19.XXXA Encounter type: initial encounter
[2022-11-28] MEDS: sodium chloride 0.9% 100 mL Bag XX (14:21)
[2022-11-28] MEDS: tranexamic acid 1,000 mg/10mL SDV 2000 MG IRRIGATION (14:21)
--- NOTE | 2022-11-28 14:52 | XRR_ITS ---
PROCEDURE INFORMATION: Exam: XR Left Hip Exam date and time: 11/28/2022 2:19 PM Age: 87 years old Clinical indication: Hip pain; Left hip; Prior surgery; Surgery date: Post-operative (0-2 days); Surgery type: Bipolar; Additional info: Status post bipolar arthroplasty TECHNIQUE: Imaging protocol: Radiologic exam of the left hip. Views: 1 view hip with pelvis when performed. COMPARISON: CR (PELVIS, ) 11/27/2022 8:10 PM FINDINGS: Bones/joints: Intact well aligned left hip arthroplasty. No acute fracture. Soft tissues: Trace postoperative soft tissue gas. XR/XR hip LT 1V wo/w pel [id number] IMPRESSION: Intact left hip arthroplasty.
--- NOTE | 2022-11-28 14:53 | PM.OP ---
Operative Report Date of procedure: November 28, 2022 Pre-op diagnosis: Displaced left femoral neck fracture Post-op diagnosis: same Procedure done: Hemiarthroplasty left hip Implants: Keith 1) Accolade C stem, size 4 2) 45 bipolar femoral head 3) 28mm/-4 neck length femoral head 4) Simplex tobramycin cement Pathology: none sent Surgeon: Jose Luis Cunningham Anesthesia: General Estimated blood loss (mL): 50 Complications: None Findings: The patient had the previously described displaced fracture of the femoral neck Condition: stable Disposition: PACU Procedure: The patient was taken to the operating room and a general anesthesia was provided by the anesthesia service. They were given 600 mg of clindamycin and 1 g of tranexamic acid and positioned in the lateral position with the hip exposed. A 10 cm long incision was made over the greater trochanter with a scalpel blade. Dissection was carried down through the fascia emi to the greater trochanter. The anterior two thirds of gluteus medius and minimus were elevated off the greater trochanter with electrocautery. The capsule was divided T like fashion. The hip was externally rotated and the neck brought up into the wound. An oscillating saw was really used to resect the neck just above the level of the lesser trochanter. The femoral head was removed and the acetabulumt sized to a 45 mm bipolar head. Due to her age and poor bone quality a cemented application was chosen. Sequential broaching of the canal was accomplished up to a size 4. A distal cement restrictor was placed. The canal was cleaned with pulsatile wash and a brush and thoroughly dried. The canal was filled with cement that was pressurized. A size 4 [place] Accolade C stem was cemented into place. A trial reduction with a -4 mm neck provided excellent stability. The final head and neck were placed and the hip reduced. The anterior capsule were reapproximated with 1 Ethibond. The gluteus medius and minimus were repaired through the greater trochanter with 5 Ethibond and reinforced with 1 Ethibond. The fascia emi was closed with 1 Stratafix. The subcutaneous tissues were closed with 2-0 Stratafix. The skin was closed with a running 4-0 Stratafix. The incision was covered with a Prineo dressing. Sterile Opsitedressings were applied. The patient was placed in abduction pillow and taken recovery room in stable condition.
[2022-11-28 15:18] LABS: Iron 39 ug/dL (37-145); Percent Saturation 17.4 % (20-50); Total Iron Binding Capacity 223 mcg/dl; Unsaturated Iron Binding 184 ug/dL (112-347)
--- NOTE | 2022-11-28 15:28 | ANE.PACU2 ---
Inpatient post-anesthesia follow up: Airway intact: Yes Vital signs: Temperature 98.8 F Pulse Rate 80 Respiratory Rate 17 Blood Pressure 128/72 Pulse Oximetry 94 Oxygen Delivery Me thod Nasal Cannula Oxygen Flow Rate 2 Fraction of Inspir ed Oxygen Hydration adequate: Yes Nausea and vomiting: No Pain level: 2 Mental status: Baseline
[2022-11-28 15:32] LABS: Vitamin B12 949 pg/mL (232-1245)
[2022-11-28] MEDS: oxyCODONE 5 mg IR Tab/Cap PO (16:55)
[2022-11-28] MEDS: sennosides-docusate Tablet 2 TAB PO (17:47)
[2022-11-28] MEDS: acetaminophen 500 mg Tablet 1000 MG PO (17:47)
[2022-11-28] MEDS: gabapentin 300 mg Capsule PO (20:31)
[2022-11-28] MEDS: sodium chloride 0.9% 1,000 ML 75 ML IV (20:43)
[2022-11-29] VITALS (10 sets, daily range): BP systolic 110–133; BP diastolic 60–78; PULSE 65–88; RESP 15–17; TEMP 36.4–36.6; O2SAT 92–98
[2022-11-29] MEDS: acetaminophen 500 mg Tablet 1000 MG PO ×2 (01:26→08:07)
[2022-11-29 05:06] LABS: Hematocrit 37.3 % (37.0-47.0); Hemoglobin 11.4 g/dL (11.5-15.3); Lymphocytes # 0.7 10^3/uL (0.8-4.8); Lymphocytes % 13.4 %; Mean Corpuscular HGB Conc 30.6 g/dL (30.0-36.0); Mean Corpuscular Hemoglobin 31.2 pg (28.0-34.0); Mean Corpuscular Volume 102.2 fl (81-99); Mean Platelet Volume 9.9 fL (7.4-10.4); Monocytes # 0.5 10^3/uL (0.2-0.9); Monocytes % 9.1 %; Neutrophils # 3.81 10^3/uL (1.8-7.7); Neutrophils % 77.3 %; Nucleated Red Blood Cells % 0 %; Platelet Count 144 10^3/cmm (130-400); Red Blood Count 3.65 10^6/uL (4.1-5.3); White Blood Count 4.9 10^3/uL (4.0-10.0)
[2022-11-29] MEDS: clindamycin 600 MG/50 ML PREMIX 100 MG IV (05:17)
[2022-11-29 05:27] LABS: Alanine Aminotransferase 16 U/L (0-33); Albumin Level 3.1 g/dL (3.5-5.2); Alkaline Phosphatase 56 U/L (35-105); Anion Gap 10.4 (5-19); Aspartate Amino Transferase 23 U/L (0-32); Blood Urea Nitrogen 11 mg/dL (8-23); Calcium 8.7 mg/dL (8.5-10.5); Carbon Dioxide 30 mmol/L (22-29); Chloride 100 mmol/L (98-107); Globulin 2.6 g/dL (1.3-4.6); Glucose 98 mg/dL (65-115); Osmolality Calculated 279 mOsm/kg (285-295); Potassium 5.4 mmol/L (3.5-5.1); Sodium 135 mmol/L (136-145); Total Bilirubin 0.3 mg/dL (0.15-1.2); Total Protein 5.7 g/dL (6.6-8.7)
[2022-11-29 05:28] LABS: Creatinine Clr Calc Pharmacy 42.8051
[2022-11-29 05:34] LABS: Estmated Average Glucose 108; Hemoglobin A1C 5.4 % (4.0-6.0)
[2022-11-29 06:04] LABS: Folate Level > 20.0 ng/mL (4.8-37.3)
--- NOTE | 2022-11-29 07:48 | PM.PN ---
Subjective Subjective: No complaints this morning. Awake and alert. Vitals/I&O/Wt Last Vital Signs Temp 97.6 F 11/29/22 03:43 Pulse 82 11/29/22 03:43 Resp 16 11/29/22 03:43 BP 118/76 11/29/22 03:43 Pulse Ox 94 11/29/22 03:43 O2 Del Method Room Air 11/29/22 03:43 O2 Flow Rate 3 11/28/22 20:00 11/28/22 11/29/22 11/29/22 22:59 06:59 14:59 Intake Total 800 / 850 200 / 1050 Output Total 250 / 250 200 / 450 Balance 550 / 600 0 / 600 Weight last 48 hrs Weight 125 lb Physical Exam Narrative: Hip dressing clean and dry. Minimal swelling left thigh Urinary Catheter Management: Pantoja Latex: Cath Placed During This Visit: yes Reason for Continuing Indwelling Catheter: Required Immobilization for Trauma or Surgery or Anesthesia Urinary Catheter Date of Insertion: 11/27/22 Urinary Catheter Time of Insertion: 22:40 Data 11/29/22 04:58 11/29/22 04:58 Micro: Microbiology 11/28/22 18:20 MRSA Culture - Final Nose A&P Assessment and plan (1) Status post left hip replacement: Begin to mobilize with therapy. Patient will reach decision whether she plans on discharge home or residential. Attestations Medical Necessity Statement*: Patient will begin therapy today. Coding Level of Care Code Acute Code for Chg Fwd Diagnoses Status post left hip replacement Z96.642
[2022-11-29] MEDS: gabapentin 300 mg Capsule PO ×2 (08:07→21:21)
[2022-11-29] MEDS: sennosides-docusate Tablet 2 TAB PO ×2 (08:07→17:43)
[2022-11-29] MEDS: pantoprazole DR 40 mg Tablet PO (08:07)
[2022-11-29] MEDS: multivitamin therapeutic Tablet 1 TAB PO (08:07)
[2022-11-29] MEDS: oxyCODONE 5 mg IR Tab/Cap PO ×3 (08:08→21:59)
[2022-11-29] MEDS: enoxaparin 40 mg/0.4 mL Syringe SUBCUT (08:08)
[2022-11-29] MEDS: oxyCODONE-APAP 5-325 mg Tablet 1 TAB PO (10:47)
--- NOTE | 2022-11-29 16:59 | P.PN_ITS ---
Subjective Subjective: No acute events overnight. Patient today morning seen with multiple family members at bedside. Patient is jovial. Worked with physical therapy. States pain is well controlled. Denies any nausea, vomiting, headache. Has remained hemodynamically stable. Remains on room air. Wanting to go to correction for further rehabitation. Vitals/I&O/Wt Last Vital Signs Temp 97.8 F 11/29/22 16:00 Pulse 65 11/29/22 16:00 Resp 15 11/29/22 16:00 BP 132/78 11/29/22 16:00 Pulse Ox 95 11/29/22 16:00 O2 Del Method Room Air 11/29/22 16:00 O2 Flow Rate 2 11/29/22 08:00 11/29/22 11/29/22 11/29/22 06:59 14:59 22:59 Intake Total 200 / 1050 120 / 120 Output Total 200 / 450 Balance 0 / 600 120 / 120 Weight last 48 hrs Weight 56.699 kg Physical Exam Narrative: AAOx3, pleasant, no acute distress, sitting up in chair Chest clear to ascultation b/l CVS normal exam Abd NAD Ext no edema noted. left leg seems shorter than right. ROM restricted. No bruising noted. Urinary Catheter Management: Pantoja Latex: Cath Placed During This Visit: yes Reason for Continuing Indwelling Catheter: Required Immobilization for Trauma or Surgery or Anesthesia Urinary Catheter Date of Insertion: 11/27/22 Urinary Catheter Time of Insertion: 22:40 Data 11/29/22 04:58 11/29/22 04:58 Micro: Microbiology 11/28/22 18:20 MRSA Culture - Final Nose A&P Assessment and plan (1) Closed fracture of left hip: Post-ORIF day 1. Hemoglobin stable. Appreciate PT evaluation. Started on Lovenox for DVT prophylaxis. Oxycodone IR every 6 hour as needed, morphine 1 mg every 4 hours as needed for pain. Tylenol 650 every 6 hours as needed. Patient does not want try tramadol. Qualifiers: Encounter type: initial encounter Qualified Code(s): S72.002A - Fracture of unspecified part of neck of left femur, initial encounter for closed fracture (2) Fall: mechanical fall Qualifiers: Encounter type: initial encounter Qualified Code(s): W19.XXXA - Unspecified fall, initial encounter Plan Check iron panel, vitamin B12, folate level.Continue with home dose of gabapentin. Full code. Regular diet Lovenox 40 mg subcu daily, SCDs for DVT prophylaxis. Protonix for PUD prophylaxis. Care discussed in detail with patient and patient's family at bedside. Discharge plan discussed in detail. Patient wants to go to SNF for further rehabilitation for 2 weeks if possible before going to home with home health. Discharge plan: Discharge to SNF as possible. Case management alerted. Attestations Medical Necessity Statement*: Requires further hospitalization for management of post-ORIF care while safe discharge planning is sought. Diagnoses Closed fracture of left hip S72.002A Encounter type: initial encounter Fall W19.XXXA Encounter type: initial encounter
[2022-11-30] VITALS (12 sets, daily range): BP systolic 127–151; BP diastolic 76–84; PULSE 83–94; RESP 16–19; TEMP 36.6–36.8; O2SAT 90–93
[2022-11-30] MEDS: oxyCODONE 5 mg IR Tab/Cap PO (02:58)
[2022-11-30] MEDS: acetaminophen 325 mg Tablet PO (03:02)
[2022-11-30 06:05] LABS: Basophils % 0.3 %; Eosinophils # 0.1 10^3/uL (0.0-0.8); Eosinophils % 1.4 %; Hematocrit 41.1 % (37.0-47.0); Hemoglobin 12.8 g/dL (11.5-15.3); Lymphocytes # 1.5 10^3/uL (0.8-4.8); Lymphocytes % 24.8 %; Mean Corpuscular HGB Conc 31.1 g/dL (30.0-36.0); Mean Corpuscular Hemoglobin 31.1 pg (28.0-34.0); Mean Corpuscular Volume 99.8 fl (81-99); Mean Platelet Volume 9.8 fL (7.4-10.4); Monocytes # 0.5 10^3/uL (0.2-0.9); Monocytes % 7.9 %; Neutrophils # 4.07 10^3/uL (1.8-7.7); Neutrophils % 65.4 %; Nucleated Red Blood Cells % 0 %; Platelet Count 174 10^3/cmm (130-400); Red Blood Count 4.12 10^6/uL (4.1-5.3); Red Cell Distribution Width 11.9 % (12.1-15.1); White Blood Count 6.2 10^3/uL (4.0-10.0)
[2022-11-30 06:30] LABS: Alanine Aminotransferase 17 U/L (0-33); Albumin Level 3.2 g/dL (3.5-5.2); Alkaline Phosphatase 66 U/L (35-105); Aspartate Amino Transferase 27 U/L (0-32); Blood Urea Nitrogen 10 mg/dL (8-23); Carbon Dioxide 25 mmol/L (22-29); Chloride 96 mmol/L (98-107); Creatinine Clr Calc Pharmacy 42.8051; Globulin 2.9 g/dL (1.3-4.6); Glucose 87 mg/dL (65-115); Osmolality Calculated 272 mOsm/kg (285-295); Sodium 132 mmol/L (136-145); Total Bilirubin 0.5 mg/dL (0.15-1.2); Total Protein 6.1 g/dL (6.6-8.7)
[2022-11-30 06:39] LABS: Anion Gap 15.8 (5-19); Potassium 4.8 mmol/L (3.5-5.1)
[2022-11-30] MEDS: oxyCODONE-APAP 5-325 mg Tablet 1 TAB PO ×4 (07:07→20:55)
[2022-11-30] MEDS: pantoprazole DR 40 mg Tablet PO (09:37)
[2022-11-30] MEDS: multivitamin therapeutic Tablet 1 TAB PO (09:37)
[2022-11-30] MEDS: sennosides-docusate Tablet 2 TAB PO ×2 (09:37→18:36)
[2022-11-30] MEDS: enoxaparin 40 mg/0.4 mL Syringe SUBCUT (09:37)
[2022-11-30] MEDS: gabapentin 300 mg Capsule PO ×3 (09:40→20:56)
--- NOTE | 2022-11-30 11:06 | PC.SOCIAL ---
Pg 2 IMM Explained to pt Pg 2 IMM. No questions voiced. Provided pt a copy. Initialed, dated, & timed a copy & placed in chart.
--- NOTE | 2022-11-30 15:46 | PM.PN ---
Subjective Subjective: No acute vents overnight. Seen with multiple family numbers at bedside. Patient continues to remain jovial. Work with physical therapy. States feeling better. Pain is better controlled. Vitals/I&O/Wt Last Vital Signs Temp 97.8 F 11/30/22 15:19 Pulse 94 11/30/22 15:19 Resp 16 11/30/22 15:19 BP 148/84 11/30/22 15:19 Pulse Ox 92 11/30/22 15:19 O2 Del Method Room Air 11/30/22 08:00 O2 Flow Rate 2 11/29/22 08:00 11/30/22 11/30/22 11/30/22 06:59 14:59 22:59 Intake Total 600 / 600 Balance 600 / 600 Physical Exam Narrative: AAOx3, pleasant, no acute distress, sitting up in chair Chest clear to ascultation b/l CVS normal exam Abd NAD Ext no edema noted. left leg seems shorter than right. ROM restricted. No bruising noted. Urinary Catheter Management: Pantoja Latex: Cath Placed During This Visit: yes Reason for Continuing Indwelling Catheter: Required Immobilization for Trauma or Surgery or Anesthesia Urinary Catheter Date of Insertion: 11/27/22 Urinary Catheter Time of Insertion: 22:40 Data 11/30/22 05:53 11/30/22 05:53 A&P Assessment and plan (1) Closed fracture of left hip: Post-ORIF day 2. Hemoglobin stable. Appreciate PT evaluation. Started on Lovenox for DVT prophylaxis. Oxycodone IR every 6 hour as needed, morphine 1 mg every 4 hours as needed for pain. Tylenol 650 every 6 hours as needed. Patient does not want try tramadol. Qualifiers: Encounter type: initial encounter Qualified Code(s): S72.002A - Fracture of unspecified part of neck of left femur, initial encounter for closed fracture (2) Fall: mechanical fall Qualifiers: Encounter type: initial encounter Qualified Code(s): W19.XXXA - Unspecified fall, initial encounter Plan Continue with chronic home medications. Full code. Regular diet Lovenox 40 mg subcu daily, SCDs for DVT prophylaxis. Protonix for PUD prophylaxis. Care discussed in detail with patient and patient's family at bedside. Discharge plan discussed in detail. Patient wants to go to SNF for further rehabilitation for 2 weeks if possible before going to home with home health. Plan for the day: Continue with postoperative care. Continue with physical therapy. Monitor blood pressure. Goal blood pressure less than 140/90 mmHg. Continues to remain elevated will start on low-dose amlodipine. Discharge plan: Discharge to SNF as possible. Case management alerted. Attestations Medical Necessity Statement*: Requires further hospitalization for postoperative care for ORIF in a patient with mechanical fall while safe discharge planning is sought. Diagnoses Closed fracture of left hip S72.002A Encounter type: initial encounter Fall W19.XXXA Encounter type: initial encounter
[2022-12-01] VITALS (10 sets, daily range): BP systolic 119–146; BP diastolic 74–85; PULSE 71–95; RESP 15–17; TEMP 36.5–36.8; O2SAT 91–94
[2022-12-01] MEDS: oxyCODONE-APAP 5-325 mg Tablet 1 TAB PO ×5 (01:32→20:16)
[2022-12-01 05:31] LABS: Basophils % 0.5 %; Eosinophils # 0.1 10^3/uL (0.0-0.8); Eosinophils % 1.6 %; Hematocrit 39.4 % (37.0-47.0); Hemoglobin 12.2 g/dL (11.5-15.3); Lymphocytes # 1.7 10^3/uL (0.8-4.8); Lymphocytes % 28.5 %; Mean Corpuscular Hemoglobin 31.3 pg (28.0-34.0); Mean Platelet Volume 9.7 fL (7.4-10.4); Monocytes # 0.6 10^3/uL (0.2-0.9); Monocytes % 10.3 %; Neutrophils # 3.58 10^3/uL (1.8-7.7); Neutrophils % 58.8 %; Nucleated Red Blood Cells % 0 %; Platelet Count 171 10^3/cmm (130-400); Red Cell Distribution Width 12.4 % (12.1-15.1); White Blood Count 6.1 10^3/uL (4.0-10.0)
[2022-12-01 06:00] LABS: Alanine Aminotransferase 18 U/L (0-33); Albumin Level 2.9 g/dL (3.5-5.2); Alkaline Phosphatase 66 U/L (35-105); Anion Gap 12.6 (5-19); Aspartate Amino Transferase 26 U/L (0-32); Blood Urea Nitrogen 10 mg/dL (8-23); Calcium 8.7 mg/dL (8.5-10.5); Carbon Dioxide 29 mmol/L (22-29); Chloride 98 mmol/L (98-107); Creatinine Clr Calc Pharmacy 42.8051; Globulin 2.9 g/dL (1.3-4.6); Glucose 82 mg/dL (65-115); Osmolality Calculated 278 mOsm/kg (285-295); Potassium 4.6 mmol/L (3.5-5.1); Sodium 135 mmol/L (136-145); Total Bilirubin 0.4 mg/dL (0.15-1.2); Total Protein 5.8 g/dL (6.6-8.7)
[2022-12-01] MEDS: sennosides-docusate Tablet 2 TAB PO ×2 (07:39→15:39)
[2022-12-01] MEDS: gabapentin 300 mg Capsule PO ×3 (07:40→19:59)
[2022-12-01] MEDS: pantoprazole DR 40 mg Tablet PO (07:40)
[2022-12-01] MEDS: enoxaparin 40 mg/0.4 mL Syringe SUBCUT (07:40)
[2022-12-01] MEDS: multivitamin therapeutic Tablet 1 TAB PO (07:40)
[2022-12-01] MEDS: clotrimazole 1% cream 30 gm 1 APPLIC TOPICAL (12:30)
--- NOTE | 2022-12-01 14:27 | PM.PN ---
Subjective Subjective: No acute vents overnight. Patient doing well. Working well with physical therapy. Denies any nausea, vomiting, headache. Vitals/I&O/Wt Last Vital Signs Temp 98.3 F 12/01/22 12:00 Pulse 90 12/01/22 12:00 Resp 16 12/01/22 08:00 BP 119/74 12/01/22 12:00 Pulse Ox 91 12/01/22 12:00 O2 Del Method Room Air 12/01/22 08:00 O2 Flow Rate 2 11/29/22 08:00 11/30/22 12/01/22 12/01/22 22:59 06:59 14:59 Intake Total 120 / 720 200 / 920 220 / 220 Balance 120 / 720 200 / 920 220 / 220 Physical Exam Narrative: AAOx3, pleasant, no acute distress, sitting up in chair Chest clear to ascultation b/l CVS normal exam Abd NAD Ext no edema noted. left leg seems shorter than right. ROM restricted. No bruising noted. Urinary Catheter Management: Pantoja Latex: Cath Placed During This Visit: yes Reason for Continuing Indwelling Catheter: Required Immobilization for Trauma or Surgery or Anesthesia Urinary Catheter Date of Insertion: 11/27/22 Urinary Catheter Time of Insertion: 22:40 Data 12/01/22 05:15 12/01/22 05:15 A&P Assessment and plan (1) Closed fracture of left hip: Post-ORIF day 3. Hemoglobin stable. Appreciate PT evaluation. Started on Lovenox for DVT prophylaxis. Oxycodone IR every 6 hour as needed, morphine 1 mg every 4 hours as needed for pain. Tylenol 650 every 6 hours as needed. Patient does not want try tramadol. Qualifiers: Encounter type: initial encounter Qualified Code(s): S72.002A - Fracture of unspecified part of neck of left femur, initial encounter for closed fracture (2) Fall: mechanical fall Qualifiers: Encounter type: initial encounter Qualified Code(s): W19.XXXA - Unspecified fall, initial encounter Plan Continue with chronic home medications. Full code. Regular diet Lovenox 40 mg subcu daily, SCDs for DVT prophylaxis. Protonix for PUD prophylaxis. Care discussed in detail with patient and patient's family at bedside. Discharge plan discussed in detail. Patient wants to go to SNF for further rehabilitation for 2 weeks if possible before going to home with home health. Plan for the day: Hemoglobin remained stable. Hold off on labs for tomorrow. Blood pressures well controlled. Continue with PT and postoperative care. Continue with current pain regimen. Awaiting placement. Discharge plan: Discharge to SNF as possible. Case management alerted. Attestations Medical Necessity Statement*: Requires further hospitalization for postoperative care while safe discharge planning is sought. Diagnoses Closed fracture of left hip S72.002A Encounter type: initial encounter Fall W19.XXXA Encounter type: initial encounter
[2022-12-02 00:17] VITALS: RESP 16
[2022-12-02] MEDS: oxyCODONE-APAP 5-325 mg Tablet 1 TAB PO ×4 (00:17→13:22)
[2022-12-02 03:56] VITALS: BP 122/70; PULSE 87; TEMP 36.8; O2SAT 92
[2022-12-02 05:08] VITALS: RESP 16
[2022-12-02 08:00] VITALS: BP 148/86; PULSE 78; RESP 16; TEMP 36.6; O2SAT 96
--- NOTE | 2022-12-02 08:17 | PC.NURSE ---
Administered patient's morning medications, patient is being taken to CT at this time.
[2022-12-02] MEDS: multivitamin therapeutic Tablet 1 TAB PO (08:23)
[2022-12-02] MEDS: enoxaparin 40 mg/0.4 mL Syringe SUBCUT (08:23)
[2022-12-02] MEDS: sennosides-docusate Tablet 2 TAB PO (08:23)
[2022-12-02] MEDS: gabapentin 300 mg Capsule PO (08:23)
[2022-12-02] MEDS: pantoprazole DR 40 mg Tablet PO (08:23)
--- NOTE | 2022-12-02 10:24 | PC.SOCIAL ---
Imm update Imm updated with patient at bedside. Copy of page 2 provided. Patient verbalized understanding. Copy in chart initialed, dated and timed.
[2022-12-02 10:26] VITALS: PULSE 90; RESP 16; O2SAT 92
--- NOTE | 2022-12-02 11:55 | PM.DCS ---
Discharge Providers Date of Admission: 11/27/22 20:39 Date of Discharge: December 02, 2022 Attending Provider at Admission: Julia Beal MD Attending Provider at Discharge: Sudhir Alvarado Primary Care Provider: Tessa Shafer MD Diagnoses at Discharge Discharge Diagnosis (1) Closed fracture of left hip: Status: Acute Qualifiers: Encounter type: initial encounter Qualified Code(s): S72.002A - Fracture of unspecified part of neck of left femur, initial encounter for closed fracture (2) Fall: Status: Acute Qualifiers: Encounter type: initial encounter Qualified Code(s): W19.XXXA - Unspecified fall, initial encounter Reason for Visit Reason for Visit: FALL Hospital Course Hospital Course Pleasant 87-year-old lady was admitted after mechanical fall with finding of left hip fracture, right pubic symphysis and superior inferior pubic rami chronic fractures, was assessed by orthopedics, underwent hemiarthroplasty of left hip on 11/28. Since then has been progressing well. Working with physical therapy. Found to require rehabilitation prior to return home which has been arranged. Hemoglobin remaining stable at around 12. Minimal edema in left lower extremity, otherwise doing well, minimal if any pain. Continues on Lovenox for DVT prophylaxis. Physical Exam Narrative: Son at bedside Const: COMMON NORMALS: patient oriented x3 and alert GENERAL APPEARANCE: cooperative ORIENTATION/CONSCIOUSNESS: Yes awake HENMT: COMMON NORMALS: oropharynx normal Neck/C-Spine: COMMON NORMALS: no JVD Resp: COMMON NORMALS: normal respiratory effort and clear to auscultation bilaterally AUSCULTATION: clear to auscultation bilaterally Cardio: COMMON NORMALS: no JVD, regular rhythm, S1 normal heart sound present, S2 normal heart sound present and No murmurs present (Cardio) RHYTHM: regular rhythm HEART SOUNDS: S1 normal heart sound present and S2 normal heart sound present GI: COMMON NORMALS: Normal to inspection, nondistended, normoactive bowel sounds present, Soft to palpation and non-tender PALPATION: Yes Soft to palpation Extremity: COMMON NORMALS: no joint enlargement OTHER: Trace edema LLE Neuro: COMMON NORMALS: patient oriented x3 and moves all extremities SENSORIUM/ORIENTATION: Yes alert Skin: COMMON NORMALS: no rashes or lesions noted GENERAL SKIN EXAM: no rashes or lesions noted Urinary Catheter Management: Pantoja Latex: Cath Placed During This Visit: yes Reason for Continuing Indwelling Catheter: Required Immobilization for Trauma or Surgery or Anesthesia Urinary Catheter Date of Insertion: 11/27/22 Urinary Catheter Time of Insertion: 22:40 Discharge Data Studies Completed and Pending Completed Studies During Hospitalization Category Date Time Status XR chest 1V portable [id number] Stat Exams 11/27/22 20:29 Completed XR hip LT 1V wo/w pel [id number] Routine Exams 11/28/22 14:52 Completed XR hip LT 2-3V wo/w pel* [id number] Stat Exams 11/27/22 20:06 Completed Pending at discharge Category Date Time Status SARS Covid-2 Antigen Routine Lab 12/02/22 11:27 Received Radiology Impressions Hip/Pelvis X-Ray 11/27/22 20:06 IMPRESSION: 1. Left hip subcapital hip fracture with displacement and impaction of the fracture fragments. 2. Right pubic symphysis along with superior and inferior pubic rami chronic fractures. 3. Lumbar spine vertebroplasty changes. Chest X-Ray 11/27/22 20:29 IMPRESSION: 1. Large hiatal hernia. 2. Mild cardiomegaly. Hip X-Ray 11/28/22 14:52 IMPRESSION: Intact left hip arthroplasty. Laboratory Results WBC 6.1 10^3/uL (4.0-10.0) 12/01/22 05:15 RBC 3.90 10^6/uL (4.1-5.3) L 12/01/22 05:15 Hgb 12.2 g/dL (11.5-15.3) 12/01/22 05:15 Hct 39.4 % (37.0-47.0) 12/01/22 05:15 MCV 101.0 fl (81-99) H 12/01/22 05:15 MCH 31.3 pg (28.0-34.0) 12/01/22 05:15 MCHC 31.0 g/dL (30.0-36.0) 12/01/22 05:15 RDW 12.4 % (12.1-15.1) 12/01/22 05:15 Plt Count 171 10^3/cmm (130-400) 12/01/22 05:15 MPV 9.7 fL (7.4-10.4) 12/01/22 05:15 Neut % (Auto) 58.8 % 12/01/22 05:15 Lymph % (Auto) 28.5 % 12/01/22 05:15 [place] % (Auto) 10.3 % 12/01/22 05:15 Eos % (Auto) 1.6 % 12/01/22 05:15 Baso % (Auto) 0.5 % 12/01/22 05:15 Neut # (Auto) 3.58 10^3/uL (1.8-7.7) 12/01/22 05:15 Lymph # (Auto) 1.7 10^3/uL (0.8-4.8) 12/01/22 05:15 [place] # (Auto) 0.6 10^3/uL (0.2-0.9) 12/01/22 05:15 Eos # (Auto) 0.1 10^3/uL (0.0-0.8) 12/01/22 05:15 Baso # (Auto) 0.0 10^3/uL (0.0-0.1) 12/01/22 05:15 Nucleated RBC % (auto) 0 % 12/01/22 05:15 Nucleated RBCs # 0.0 /100WBC 12/01/22 05:15 PT 12.80 SECONDS (12.1-14.9) 11/27/22 21:20 INR 0.94 (0.8-1.2) 11/27/22 21:20 Sodium 135 mmol/L (136-145) L 12/01/22 05:15 Potassium 4.6 mmol/L (3.5-5.1) 12/01/22 05:15 Chloride 98 mmol/L (98-107) 12/01/22 05:15 Carbon Dioxide 29 mmol/L (22-29) 12/01/22 05:15 Anion Gap 12.6 (5-19) 12/01/22 05:15 BUN 10 mg/dL (8-23) 12/01/22 05:15 Creatinine 0.5 mg/dL (0.5-0.9) 12/01/22 05:15 GFR Calculation Not Reportable 12/01/22 05:15 Glucose 82 mg/dL (65-115) 12/01/22 05:15 Estimat Average Glucose 108 11/29/22 04:58 Hemoglobin A1c 5.4 % (4.0-6.0) 11/29/22 04:58 Calculated Osmolality 278 mOsm/kg (285-295) L 12/01/22 05:15 Calcium 8.7 mg/dL (8.5-10.5) 12/01/22 05:15 Iron 39 ug/dL (37-145) 11/28/22 10:25 TIBC 223 mcg/dl 11/28/22 10:25 % Saturation 17.4 % (20-50) L 11/28/22 10:25 Unsat Iron Binding 184 ug/dL (112-347) 11/28/22 10:25 Total Bilirubin 0.4 mg/dL (0.15-1.2) 12/01/22 05:15 AST 26 U/L (0-32) 12/01/22 05:15 ALT 18 U/L (0-33) 12/01/22 05:15 Alkaline Phosphatase 66 U/L (35-105) 12/01/22 05:15 Total Protein 5.8 g/dL (6.6-8.7) L 12/01/22 05:15 Albumin 2.9 g/dL (3.5-5.2) L 12/01/22 05:15 Globulin 2.9 g/dL (1.3-4.6) 12/01/22 05:15 Vitamin B12 949 pg/mL (232-1245) 11/28/22 10:25 Folate > 20.0 ng/mL (4.8-37.3) 11/29/22 04:58 Blood Type B Negative 11/28/22 10:25 Rho(D) Type Negative 11/28/22 10:25 Antibody Screen Negative 11/28/22 10:25 Vitals Last Vital Signs Temp 97.9 F 12/02/22 08:00 Pulse 90 12/02/22 10:26 Resp 16 12/02/22 10:26 BP 148/86 12/02/22 08:00 Pulse Ox 92 12/02/22 10:26 O2 Del Method Room Air 12/02/22 10:26 O2 Flow Rate 2 11/29/22 08:00 Discharge Plan Discharge Patient Disposition: Xfer SNF Condition: Stable Prescriptions: New enoxaparin 40 mg/0.4 mL Syringe 40 mg SUBCUT Q24H 21 Days Qty: 8.4 0RF sennosides-docusate sodium [Stool Softener-Laxative] 8.6-50 mg Tablet 2 tab PO BID Qty: 60 0RF acetaminophen 325 mg Tablet 325 mg PO Q6H PRN (Reason: Mild Pain) Qty: 60 0RF Continued cranberry 500 mg capsule 500 mg PO DAILY multivitamin [Multiple Vitamins] Tablet 1 tab PO DAILY methenamine hippurate 1 gram tablet See Rx Instructions .ROUTE .COMPLEX Qty: 60 2RF Hold Instructions: until finished with Bactrim DS Dose Instruction: TAKE ONE TABLET BY MOUTH TWICE DAILY with 1000 MG of vitamin c Rx Instructions: TAKE ONE TABLET BY MOUTH TWICE DAILY with 1000 MG of vitamin c gabapentin 300 mg capsule See Rx Instructions .ROUTE .COMPLEX Qty: 90 2RF Dose Instruction: TAKE ONE CAPSULE BY MOUTH THREE TIMES DAILY Rx Instructions: TAKE ONE CAPSULE BY MOUTH THREE TIMES DAILY raloxifene 60 mg tablet 60 mg PO DAILY levocetirizine 5 mg tablet 5 mg PO DAILY Discontinued meloxicam 15 mg tablet 15 mg PO DAILY Discharge Orders: Discharge Order (Routine); Ordered 12/02/22 Ordered By: Sudhir Alvarado Referrals: Jose Luis Cunningham MD [Physician] - 2 weeks Tessa Shafer MD [Primary Care Provider] - 4-7 days Discharge Diet: Regular Discharge Activity: As per PT/OT instructions Patient Instructions: Enoxaparin (By injection), Joint Replacement Surgery (GEN) Activity Restrictions/Additional Instructions: Follow-up with orthopedics in office for reassessment as well as with your primary provider. Please have your primary doctor recheck your blood counts to check for anemia. Seek medical attention in case of any lightheadedness or dizziness, shortness of breath, swelling of your leg, bleeding, or any other concerning symptoms. Discharge Attestations Time Spent in Discharge Care*: greater than 30 min Quality Metrics Clinical Quality Measures [ No reported AMI, CVA or VTE this stay] Coding Level of Care Code 76357 Total time (in minutes) for Discharge: 40 Diagnoses Closed fracture of left hip S72.002A Encounter type: initial encounter Fall W19.XXXA Encounter type: initial encounter
[2022-12-02 11:57] LABS: SARS Covid-2 Antigen negative (Negative)
== END 2022-12-02 14:25 | disposition skilled nursing facility (03) | DRG 522 ==
LOC: ER 20:30 → MEDSURG 21:13
PROVIDERS: Orthopaedic Surgery; Student in an Organized Health Care Education/Training Program; Admitting Provider Internal Medicine; Emergency Provider Emergency Medicine; PCP Family Medicine; Visit Provider Internal Medicine
PROC: 0SRS0J9 Replacement of Left Hip Joint, Femoral Surface with Synthetic Substitute, Cemented, Open Approach (ICD-10-PCS; CPT 27125; principal; 2022-11-28 12:30)
DX: S72.012A Unspecified intracapsular fracture of left femur, initial encounter for closed fracture (principal); S32.511 Fracture of superior rim of right pubis; W01.0XXA Fall on same level from slipping, tripping and stumbling without subsequent striking against object, initial encounter; W18.30XD Fall on same level, unspecified, subsequent encounter; H35.30 Unspecified macular degeneration; M19.90 Unspecified osteoarthritis, unspecified site
CPT/HCPCS: 36415; 51702; 71045; 73501; 73502; 80053; 80503; 82607; 82746; 83036; 83540; 83550; 85025; 85610; 86850; 86900; 87426; 87641; 93005; 96372; 96374; 97110; 97116; 97161; 97166; 97530; 97535; 99221; 99285; C1713; C1776; J1580; J1650; J2270; J2704; J3010; J3490; J7030; Q0162

== ENCOUNTER → 2022-12-13 10:05 | Outpatient (BNVA) | payer MEDICARE, MEDICAID, SELFPAY | PROVIDERS: PCP Family Medicine; Visit Provider Nurse Practitioner Family | DX: Z96.642 Presence of left artificial hip joint (principal) | CPT/HCPCS: 73502; 99024 ==

== ENCOUNTER → 2022-12-24 14:42 | Outpatient (BNVA) | payer MEDICARE, MEDICAID, SELFPAY | PROVIDERS: PCP Family Medicine; Visit Provider Family Medicine | DX: Z96.642 Presence of left artificial hip joint (principal); Z79.899 Other long term (current) drug therapy | CPT/HCPCS: 85025 ==

== ENCOUNTER → 2023-01-16 08:18 | Outpatient (BNVA) | payer MEDICARE, MEDICAID, SELFPAY | PROVIDERS: PCP Family Medicine; Visit Provider Family Medicine | DX: Z96.642 Presence of left artificial hip joint (principal) | CPT/HCPCS: 85025 ==

== ENCOUNTER → 2023-01-27 10:52 | Outpatient (BNVA) | payer BC, MEDICAID, MEDICARE, SELFPAY | PROVIDERS: PCP Family Medicine; Visit Provider Nurse Practitioner Family | DX: Z96.642 Presence of left artificial hip joint (principal) | CPT/HCPCS: 73502; 99024; 99213 ==

== ENCOUNTER → 2023-02-11 14:19 | Outpatient (BNVA) | payer MEDICARE, MEDICAID, SELFPAY | PROVIDERS: PCP Family Medicine; Visit Provider Nurse Practitioner Family | DX: R30.0 Dysuria (principal); M81.0 Age-related osteoporosis without current pathological fracture; G57.93 Unspecified mononeuropathy of bilateral lower limbs; M19.90 Unspecified osteoarthritis, unspecified site; Z78.0 Asymptomatic menopausal state; R53.83 Other fatigue | CPT/HCPCS: 80053; 82306; 82607; 82746; 84443 ==

== ENCOUNTER → 2023-05-14 10:34 | Outpatient (BNVA) | payer MEDICARE, BC, SELFPAY | PROVIDERS: PCP Family Medicine; Visit Provider Nurse Practitioner | DX: Z96.642 Presence of left artificial hip joint (principal); M25.552 Pain in left hip; G89.29 Other chronic pain; S72.002D Fracture of unspecified part of neck of left femur, subsequent encounter for closed fracture with routine healing; X58.XXXD Exposure to other specified factors, subsequent encounter | CPT/HCPCS: 73502; 99214 ==

== ENCOUNTER → 2023-06-18 18:50 | Outpatient (BNVA) | payer MEDICARE, SELFPAY | PROVIDERS: PCP Family Medicine; Visit Provider Family Medicine | DX: R30.0 Dysuria (principal) | CPT/HCPCS: 81003 ==

== ENCOUNTER → 2023-06-27 12:00 | Outpatient (BNVA) | payer MEDICARE, MEDICAID, SELFPAY | PROVIDERS: PCP Family Medicine; Visit Provider Family Medicine | DX: Z91.81 History of falling (principal); Z13.6 Encounter for screening for cardiovascular disorders; G57.93 Unspecified mononeuropathy of bilateral lower limbs; Z79.899 Other long term (current) drug therapy | CPT/HCPCS: 80053; 80061; 84443; 85025 ==

== ENCOUNTER 2023-08-17 08:04 | Emergency (ER) | payer MEDICARE, BC, SELFPAY ==
[2023-08-17 08:34] VITALS: BP 128/91; PULSE 78; TEMP 36.6; O2SAT 95; BMI 21.4
--- NOTE | 2023-08-17 08:48 | CTR_ITS ---
PROCEDURE INFORMATION: Exam: CT Abdomen And Pelvis With Contrast Exam date and time: 08/17/2023 10:22 AM Age: 87 years old Clinical indication: Other: Hematochezia; Prior surgery; Surgery date: 6+ months; Surgery type: Hysterectomy, hip replacement; Additional info: Lower g i bleed TECHNIQUE: Imaging protocol: Computed tomography of the abdomen and pelvis with contrast. Radiation optimization: All CT scans at this facility use at least one of these dose optimization techniques: automated exposure control; mA and/or kV adjustment per patient size (includes targeted exams where dose is matched to clinical indication); or iterative reconstruction. Contrast material: [id number]; Contrast volume: 80 ml; Contrast route: INTRAVENOUS (IV); COMPARISON: CT pelvis wo con [id number] 08/08/2022 12:09 AM RADIATION DOSE METRICS: Total DLP (mGy-cm): 440.53 FINDINGS: Lungs: Compressive atelectasis of the left lower lobe. Diaphragm: [id number] hiatal hernia. Liver: The liver is unremarkable. Gallbladder and bile ducts: The gallbladder is unremarkable. No biliary ductal dilatation. Pancreas: Moderate atrophy of the pancreas. No pancreatic ductal dilation. Spleen: The spleen is unremarkable. Adrenal glands: The adrenal glands are unremarkable. Kidneys and ureters: Kidneys are normal in appearance. No hydronephrosis or hydroureter. Stomach and bowel: Nonobstructive bowel-gas pattern. Mild scattered colonic diverticulosis. No distinct CT evidence of acute diverticulitis. Multiple small calcified objects/stones in the dependent cecum. These were previously seen, but in greater number, on 08/08/2022. Appendix: Appendix is not distinctly visualized with now focal inflammation about the cecum to suggest acute appendicitis. Intraperitoneal space: No significant free fluid in the abdomen or pelvis. Vasculature: Scattered calcific disease of the aorta and its major branches. Multiple prominent pelvic phleboliths. No abdominal aortic aneurysm. Lymph nodes: No suspicious lymphadenopathy. Urinary bladder: Urinary bladder is normal in appearance. Reproductive: Uterus is absent. Bones/joints: Status post right hip total arthroplasty. Chronic compression deformities of the vertebral bodies of L2, L3, and L4, status post vertebroplasty. Moderate lumbar levocurvature. Chronic appearing structural deformities of the ribcage, likely secondary to scoliosis. No acute displaced osseous fractures identified. Soft tissues: Superficial soft tissues demonstrate mild diffuse anasarca. CT/CT abdomen pelvis w con* [id number] IMPRESSION: 1. Mild scattered colonic diverticulosis. No distinct CT evidence of acute diverticulitis. 2. Multiple small calcified objects/stones in the dependent cecum. These were previously seen, but in greater number, on 08/08/2022. These may represent ingested materials versus chronic calcifications within or attached to the dependent cecum. No significant surrounding stranding or edema to suggest an acute process.
--- NOTE | 2023-08-17 08:49 | ED_ITS ---
HPI - GI Bleed 2 General: Chief complaint: GI Bleed Stated complaint: Blood in stool Time Seen by Provider: 08/17/23 08:07 History of Present Illness: Patient presents to the ER today with complaints of having 3 large bloody bowel movements this morning. Patient then got lightheaded and dizzy for like she got a pass out. Patient does have a history of having a bleeding ulcer in the past but she was throwing up blood then. Patient is not on any type of anticoagulation. Patient does take meloxicam daily. Patient felt good yesterday. Patient is never had bleeding out of her rectum. 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 Macular degeneration Murmur Osteoarthritis Kyphosis DDD (degenerative disc disease) Cataracts, bilateral Surgical History History of hysterectomy Social History Smoking and tobacco/nicotine status: never used tobacco/nicotine Alcohol intake: never Substance/Drug Use: never Marital status: Physical Exam 2 Const: COMMON NORMALS: no acute distress, average body habitus, patient oriented x3, no limitations, healthy appearing, alert and well nourished HENMT: COMMON NORMALS: normocephalic, atraumatic, hearing grossly normal bilaterally, external ears normal, EAC's normal, Normal external nose present, moist oral mucous membranes and oropharynx normal HEAD & SCALP: normocephalic and atraumatic NOSE: Normal external nose present EXTERNAL EAR: Yes external ears normal EXTERNAL AUDITORY CANAL: EAC's normal Neck/C-Spine: COMMON NORMALS: no JVD Chest: COMMONS NORMALS: normal inspection of the chest and normal palpation of entire chest wall Resp: COMMON NORMALS: normal respiratory effort, No retractions, No use of accessory muscles and clear to auscultation bilaterally AUSCULTATION: clear to auscultation bilaterally Cardio: COMMON NORMALS: no JVD, regular rate, regular rhythm, S1 normal heart sound present, S2 normal heart sound present, No gallops present (Cardio), No clicks present (Cardio), No murmurs present (Cardio) and No rub (Cardio) R ATE: regular rate RHYTHM: regular rhythm HEART SOUNDS: S1 normal heart sound present and S2 normal heart sound present GI: COMMON NORMALS: Normal to inspection, nondistended, normoactive bowel sounds present, Soft to palpation, non-tender, No hepatosplenomegaly present and no masses PALPATION: Yes Soft to palpation and Yes No hepatosplenomegaly present Neuro: COMMON NORMALS: patient oriented x3 SENSORIUM/ORIENTATION: Yes alert Course 2 Vital Signs: Vital signs: Vital Signs Temperature 97.8 F 08/17/23 08:34 Pulse Rate 96 08/17/23 11:48 Respiratory Rate 16 08/17/23 11:48 Blood Pressure 143/84 08/17/23 11:48 Pulse Oximetry 93 08/17/23 11:48 Oxygen Delivery Me thod Room Air 08/17/23 11:00 MDM - GI Bleed Medical Decision Making Physical exam was performed lab work was obtained as well as a contrasted CT scan of the abdomen pelvis that work is fairly unremarkable patient did have a potassium of 5.5 and is on no potassium substitute, hemoglobin hematocrit was 12.3/38.6, abdomen pelvis of the CT just showed mild scattered colonic diverticulosis no other acute findings. These results was discussed with the patient and her family. Patient is feeling good and is ready to go home. Patient be discharged home to follow back up with her family practice physician within next 7 days for further evaluation and treatment. Differential Diagnosis Likely Lower gastrointestinal hemorrhage; Unlikely hemorrhoids, infectious diarrhea, esophageal varices, gastritis, Pamela-Cason syndrome, Upper gastrointestinal hemorrhage, melena or anal fissure Medical Records I reviewed the patient's medical records. Lab Data I reviewed the patient's lab results. 08/17/23 09:09 08/17/23 09:09 Radiology Impressions Abdomen/Pelvis CT 08/17/23 08:48 IMPRESSION: 1. Mild scattered colonic diverticulosis. No distinct CT evidence of acute diverticulitis. 2. Multiple small calcified objects/stones in the dependent cecum. These were previously seen, but in greater number, on 08/08/2022. These may represent ingested materials versus chronic calcifications within or attached to the dependent cecum. No significant surrounding stranding or edema to suggest an acute process. Laboratory Results WBC 4.79 10^3/uL (3.29-11.43) 08/17/23 09:09 RBC 3.87 10^6/uL (3.85-5.65) 08/17/23 09:09 Hgb 12.30 g/dL (11.27-16.99) 08/17/23 09:09 Hct 38.6 % (36-47) 08/17/23 09:09 MCV 99.7 fl (85-98) H 08/17/23 09:09 MCH 31.8 pg (27-33) 08/17/23 09:09 MCHC 31.9 g/dL (30-55) 08/17/23 09:09 RDW 13.1 % (12.1-15.1) 08/17/23 09:09 Plt Count 201 10^3/cmm (157-399) 08/17/23 09:09 MPV 10.2 fL (7.4-10.4) 08/17/23 09:09 Neut % (Auto) 63.5 % 08/17/23 09:09 Lymph % (Auto) 23.6 % 08/17/23 09:09 Perkins % (Auto) 10.4 % 08/17/23 09:09 Eos % (Auto) 1.7 % 08/17/23 09:09 Baso % (Auto) 0.6 % 08/17/23 09:09 Neut # (Auto) 3.04 10^3/uL (1.8-7.7) 08/17/23 09:09 Lymph # (Auto) 1.1 10^3/uL (0.8-4.8) 08/17/23 09:09 Perkins # (Auto) 0.5 10^3/uL (0.2-0.9) 08/17/23 09:09 Eos # (Auto) 0.1 10^3/uL (0.0-0.8) 08/17/23 09:09 Baso # (Auto) 0.0 10^3/uL (0.0-0.1) 08/17/23 09:09 Nucleated RBC % (auto) 0 % 08/17/23 09:09 Nucleated RBCs # 0.0 /100WBC 08/17/23 09:09 PT 12.80 SECONDS (12.1-14.9) 08/17/23 09:09 INR 0.93 (0.8-1.2) 08/17/23 09:09 Sodium 133 mmol/L (136-145) L 08/17/23 09:09 Potassium 5.5 mmol/L (3.5-5.1) H 08/17/23 09:09 Chloride 96 mmol/L (98-107) L 08/17/23 09:09 Carbon Dioxide 31 mmol/L (22-29) H 08/17/23 09:09 Anion Gap 11.5 (5-19) 08/17/23 09:09 BUN 17 mg/dL (8-23) 08/17/23 09:09 Creatinine 0.5 mg/dL (0.5-0.9) 08/17/23 09:09 GFR Calculation Not Reportable 08/17/23 09:09 Glucose 79 mg/dL (65-115) 08/17/23 09:09 Calculated Osmolality 276 mOsm/kg (285-295) L 08/17/23 09:09 Calcium 9.0 mg/dL (8.5-10.5) 08/17/23 09:09 Total Bilirubin 0.4 mg/dL (0.15-1.2) 08/17/23 09:09 AST 22 U/L (0-32) 08/17/23 09:09 ALT 15 U/L (0-33) 08/17/23 09:09 Alkaline Phosphatase 49 U/L (35-105) 08/17/23 09:09 Total Protein 6.2 g/dL (6.6-8.7) L 08/17/23 09:09 Albumin 3.8 g/dL (3.5-5.2) 08/17/23 09:09 Globulin 2.4 g/dL (1.3-4.6) 08/17/23 09:09 Blood Type B Negative 08/17/23 09:09 Rho(D) Type Rh negative 08/17/23 09:09 Antibody Screen Negative 08/17/23 09:09 All radiology interpretation(s) finalized by discharge Discharge Plan Discharge Patient Disposition: Home Clinical Impression: Hematochezia, Acute hyperkalemia Condition: Stable Prescriptions: No Action cranberry 500 mg capsule 500 mg PO DAILY multivitamin [Multiple Vitamins] Tablet 1 tab PO DAILY clotrimazole 1 % cream 1 applic topical BID Qty: 30 0RF gabapentin 300 mg capsule See Rx Instructions .ROUTE .COMPLEX Qty: 90 2RF Dose Instruction: TAKE ONE CAPSULE BY MOUTH THREE TIMES DAILY Rx Instructions: TAKE ONE CAPSULE BY MOUTH THREE TIMES DAILY methenamine hippurate 1 gram tablet See Rx Instructions .ROUTE .COMPLEX Qty: 60 2RF Hold Instructions: until finished with Bactrim DS Dose Instruction: TAKE ONE TABLET BY MOUTH TWICE DAILY Rx Instructions: TAKE ONE TABLET BY MOUTH TWICE DAILY raloxifene 60 mg tablet See Rx Instructions .ROUTE .COMPLEX Qty: 30 2RF Dose Instruction: TAKE ONE TABLET BY MOUTH EVERY DAY Rx Instructions: TAKE ONE TABLET BY MOUTH EVERY DAY sulfamethoxazole-trimethoprim [Bactrim DS] 800-160 mg tablet 1 tab PO BID Qty: 10 0RF levocetirizine 5 mg tablet See Rx Instructions .ROUTE .COMPLEX Qty: 30 0RF Dose Instruction: TAKE ONE TABLET BY MOUTH DAILY Rx Instructions: TAKE ONE TABLET BY MOUTH DAILY meloxicam 15 mg tablet 15 mg PO DAILY Qty: 30 2RF diclofenac sodium [Voltaren Arthritis Pain] 1 % gel 2 g topical QID Qty: 100 0RF Rx Instructions: apply to back Stool Softener-Laxative 8.6-50 mg Tablet 2 tab PO BID Qty: 60 0RF acetaminophen 325 mg Tablet 325 mg PO Q6H PRN (Reason: Mild Pain) Qty: 60 0RF Miralax 17 gram/dose powder 4 g PO DAILY Qty: 238 2RF Discharge Orders: Discharge ED (Routine); Ordered 08/17/23 Ordered By: Marcos Valentine Referrals: Tessa Shafer MD [Primary Care Provider] - 1 week Patient Instructions: GI Bleeding, Hyperkalemia (ED) Activity Restrictions/Additional Instructions: Your potassium was mildly elevated in the ER otherwise your lab work was stable. Please follow-up with your family practice physician within 7 days for further evaluation and treatment as needed. Referral and/or colonoscopy may be warranted especially if this bleeding happens again. If this does happen again or get lightheaded dizzy felt going to pass out please return to the ER. Coding Level of Care Code ED [employer] for Sherine Rand
[2023-08-17 09:08] VITALS: BP 115/70; O2SAT 94
[2023-08-17] MEDS: sodium chloride 0.9% 1,000 ML 999 ML IV (09:15)
[2023-08-17 09:30] VITALS: BP 118/62; PULSE 71; O2SAT 96
[2023-08-17 09:54] LABS: Basophils % 0.6 %; Eosinophils # 0.1 10^3/uL (0.0-0.8); Eosinophils % 1.7 %; Hematocrit 38.6 % (36-47); Lymphocytes # 1.1 10^3/uL (0.8-4.8); Lymphocytes % 23.6 %; Mean Corpuscular HGB Conc 31.9 g/dL (30-55); Mean Corpuscular Hemoglobin 31.8 pg (27-33); Mean Corpuscular Volume 99.7 fl (85-98); Mean Platelet Volume 10.2 fL (7.4-10.4); Monocytes # 0.5 10^3/uL (0.2-0.9); Monocytes % 10.4 %; Neutrophils # 3.04 10^3/uL (1.8-7.7); Neutrophils % 63.5 %; Nucleated Red Blood Cells % 0 %; Platelet Count 201 10^3/cmm (157-399); Red Blood Count 3.87 10^6/uL (3.85-5.65); Red Cell Distribution Width 13.1 % (12.1-15.1); White Blood Count 4.79 10^3/uL (3.29-11.43)
[2023-08-17 10:00] VITALS: BP 124/68; PULSE 69; O2SAT 90
[2023-08-17 10:03] LABS: INR 0.93 (0.8-1.2)
[2023-08-17 10:12] LABS: Alanine Aminotransferase 15 U/L (0-33); Albumin Level 3.8 g/dL (3.5-5.2); Alkaline Phosphatase 49 U/L (35-105); Blood Urea Nitrogen 17 mg/dL (8-23); Carbon Dioxide 31 mmol/L (22-29); Chloride 96 mmol/L (98-107); Globulin 2.4 g/dL (1.3-4.6); Glucose 79 mg/dL (65-115); Osmolality Calculated 276 mOsm/kg (285-295); Sodium 133 mmol/L (136-145); Total Bilirubin 0.4 mg/dL (0.15-1.2); Total Protein 6.2 g/dL (6.6-8.7)
[2023-08-17 10:17] LABS: Anion Gap 11.5 (5-19); Aspartate Amino Transferase 22 U/L (0-32); Potassium 5.5 mmol/L (3.5-5.1)
[2023-08-17] MEDS: iohexol 350 mg/mL 500 mL Btl (per mL) IV (10:25)
[2023-08-17 11:00] VITALS: BP 139/81; O2SAT 93
[2023-08-17 11:48] VITALS: BP 143/84; PULSE 96; RESP 16; O2SAT 93
== END 2023-08-17 11:49 | disposition home or self-care (01) ==
PROVIDERS: Emergency Provider Emergency Medicine; PCP Family Medicine
DX: K92.1 Melena (principal); E87.5 Hyperkalemia; H35.30 Unspecified macular degeneration
CPT/HCPCS: 36415; 74177; 80053; 85025; 85610; 86850; 86900; 99285; J7030; Q9967

== ENCOUNTER → 2023-08-19 16:31 | Outpatient (BNVA) | payer MEDICARE, BC, SELFPAY | PROVIDERS: PCP Family Medicine; Visit Provider Family Medicine | DX: Z09 Encounter for follow-up examination after completed treatment for conditions other than malignant neoplasm (principal); R79.89 Other specified abnormal findings of blood chemistry; E87.5 Hyperkalemia | CPT/HCPCS: 84132; 84439; 84443; 84481 ==

== ENCOUNTER → 2024-04-12 15:00 | Outpatient (BNVA) | payer MEDICARE, BC, SELFPAY | PROVIDERS: PCP Nurse Practitioner Family; Visit Provider Nurse Practitioner Family | DX: Z13.6 Encounter for screening for cardiovascular disorders (principal); M19.90 Unspecified osteoarthritis, unspecified site; I49.9 Cardiac arrhythmia, unspecified | CPT/HCPCS: 80053; 80061; 84443; 85025 ==

== ENCOUNTER → 2024-06-18 11:45 | Outpatient (BNVA) | payer MEDICARE, BC, SELFPAY | PROVIDERS: PCP Nurse Practitioner Family; Visit Provider Nurse Practitioner Family | DX: R30.0 Dysuria (principal) | CPT/HCPCS: 81003; 87077; 87086; 87184 ==

== ENCOUNTER → 2025-03-07 11:39 | Outpatient (BNVA) | payer MEDICARE, BC, SELFPAY | PROVIDERS: PCP Nurse Practitioner Family; Visit Provider Nurse Practitioner Family | DX: M81.0 Age-related osteoporosis without current pathological fracture (principal); Z13.6 Encounter for screening for cardiovascular disorders; R39.9 Unspecified symptoms and signs involving the genitourinary system; R53.83 Other fatigue; R50.9 Fever, unspecified; R06.02 Shortness of breath; K44.9 Diaphragmatic hernia without obstruction or gangrene | CPT/HCPCS: 71046; 80053; 80061; 81000; 81003; 82607; 84443; 85025; 87400; 87426 ==

== ENCOUNTER → 2025-03-11 11:05 | Outpatient (BNVA) | payer MEDICARE, BC, SELFPAY | PROVIDERS: PCP Nurse Practitioner Family; Visit Provider Nurse Practitioner Family | DX: R39.9 Unspecified symptoms and signs involving the genitourinary system (principal) | CPT/HCPCS: 81000 ==